=== PATIENT | female | born 1955 | race Caucasian/White ===

== ENCOUNTER 2017-10-26 09:02 | Observation (INO) | payer OTHER ==
--- NOTE | 2017-10-25 08:27 | MH ---
cc: DAMIAN BASSETT M.D. DATE OF ADMISSION: 10/26/2017 PRINCIPAL DIAGNOSIS Right breast cancer. HISTORY OF PRESENT ILLNESS The patient is a 62-year-old female noted to have a density in the lower inner right breast at 5 o'clock 6 cm from the nipple initially noted on a diagnostic mammogram July 11, 2017 at [facility]. Right breast ultrasound confirmed these findings. 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 The patient had a benign right breast biopsy 20 years ago. She subsequently had a breast MRI which demonstrated some other areas of enhancement requiring further evaluation. At that point, the patient opted for bilateral mastectomy with immediate reconstruction and she now presents for the procedure. PAST MEDICAL HISTORY Medical problems include - 1. Hypertension. 2. Peptic ulcer disease. 3. History of deep venous thrombosis in the right calf. PAST SURGICAL HISTORY Prior surgeries included - 1. Bilateral knee replacement in 2004 and 2012. 2. Hysterectomy for endometriosis in 1978. 3. Ulcer surgery in 1989. 4. Surgery on the face, ankle and foot in the past. CURRENT MEDICATIONS 1. Hydrochlorothiazide 25 mg daily. 2. Lisinopril 25 mg daily. 3. Tylenol one-to-two tablets daily. 4. Multivitamin supplement daily. ALLERGIES SHE IS ALLERGIC TO CODEINE WHICH IS AN ADVERSE DRUG REACTION WITH NAUSEA AND VOMITING, AND BACTRIM ANALGON CAUSED SIMILAR SYMPTOMS. REPRODUCTIVE HISTORY G2, P2. Menarche age 13, first child age 18, surgical menopause age 23. She took hormone replacement for approximately six months until she developed a DVT. FAMILY HISTORY Significant for breast cancer in her mother at age 36. REVIEW OF SYSTEMS A 12-point review of systems was significant for gastroesophageal reflux. PHYSICAL EXAMINATION VITAL SIGNS: She is 5'4" and weighs 199 pounds with a BMI of 34.2. Blood pressure was 162/90, temperature 97.9, respirations 18, heart rate 78. HEENT: Unremarkable. NECK: Supple with no adenopathy or thyromegaly. CHEST: Clear. CARDIOVASCULAR: Cardiac exam revealed a normal S1 and S2 with no murmurs, rubs or gallops. BREASTS: Breast exam revealed fibrocystic changes with no palpable masses and there was a healed biopsy site in the lower inner right breast. ABDOMEN: Abdomen exam revealed a right upper quadrant and midline scar with no masses or tenderness. The remainder of her exam was unremarkable. IMPRESSION Clinically the patient has stage 0 disease in the lower inner right breast 6 mm lesion. We initially discussed breast conservation but because of other areas of enhancement by MRI, the patient has opted for bilateral mastectomy with immediate reconstruction. She will also undergo right axillary sentinel lymph node biopsy. MD CHITO Gilbert/MELONIE /11:10 AM /8:22 AM
[~2017-10-26] VITALS: Ht 162.6 cm; Wt 90.0 kg
[~2017-10-26 09:02] MED LIST: ADVI200C9 PO; AUGM500T7 PO; DOXY100T PO; HYDR12.56 PO; HYDR12.57 PO; IBUP200C; LISI-360 PO; LISI10TA3 PO; MULTTAB67 PO; OMEP20TA39 PO; OMEP20TA93 PO; OXYC1TAB63 PO; PERC5TAB12 PO; TAB-TAB PO
[2017-10-26] MEDS ORDERED: ceFAZolin 2 GM PREMIX 50 ML IV SCH (09:30)
[2017-10-26] MEDS ORDERED: ONDANSETRON HCL 4 MG/2 ML VIAL IV PUSH SCH (09:30)
[2017-10-26] MEDS ORDERED: CYMB60CA PO (09:55)
[2017-10-26] MEDS ORDERED: PLAQ200T PO (09:55)
[2017-10-26] MEDS ORDERED: POVIDONE IODINE 5% (ANTISEPSIS KIT) 4 APPLICATIONS EACH NARE PRN (10:00)
[2017-10-26] MEDS ORDERED: METOPROLOL TARTRATE 25 MG TAB PO PRN (10:00)
[2017-10-26] MEDS ORDERED: SODIUM CHLORID 0.9% 500 ML IV PRN (10:00)
[2017-10-26] MEDS ORDERED: CHLORHEXIDINE GLUCONATE 2 % 1 PACK (2 CLOTHS) TOPICAL PRN (10:00)
[2017-10-26] MEDS ORDERED: LACTATED RINGER'S 1000 ML IV PRN (10:00)
[2017-10-26] MEDS ORDERED: HYDROmorphone HCL PF 2 MG/ML VIAL ONE ×3 (10:14→16:43)
[2017-10-26] MEDS ORDERED: SUGAMMADEX SODIUM 200 MG/2 ML VIAL IV PUSH ONE (10:14)
[2017-10-26] MEDS ORDERED: BUPIVACAINE/EPINEPHRINE 0.25% 50 ML VIAL ONE (10:15)
[2017-10-26] MEDS ORDERED: NALOXONE HCL 0.4 MG/ML AMP ONE (10:15)
[2017-10-26] MEDS ORDERED: APREPITANT 40 MG CAP ONE (10:16)
[2017-10-26] MEDS ORDERED: ISOSULFAN BLUE 50 MG/5 ML VIAL SQ ONE (10:16)
[2017-10-26] MEDS ORDERED: SODIUM CHLORIDE 0.9% 20 ML VIAL ONE (10:22)
[2017-10-26] MEDS ORDERED: GENTAMICIN SULFATE 80 MG/2 ML VIAL ONE (13:18)
[2017-10-26] MEDS ORDERED: MIDAZOLAM HCL 2 MG/2 ML VIAL ONE (15:01)
[2017-10-26 15:30] VITALS: PULSE 82
[2017-10-26] MEDS ORDERED: MORPHINE SULFATE 8 MG/ML INJ ONE ×2 (15:32→16:23)
--- NOTE | 2017-10-26 15:34 | PD.OP ---
Operative Report Right breast cancer, patient for bilateral mastectomies and Tissue Manager Reading, Allomax Reconstruction Postoperative Diagnosis: Right breast cancer, patient for bilateral mastectomies and Tissue Manager Reading, Allomax Reconstruction Procedure: 1) Right Breast Areola sparing Mastectomy and Lymph node sampling by Dr. Mcduffie 2) Left Breast Nipple sparing mastectomy - Johana Morales 3) Bilateral Breast reconstructions with Tissue Expanders and Allomax Tissue grafts - Dr. Vaughn Anesthesia: gen Surgeon: Dr. Froy Vaughn Regulatory Scientist(s): rn Resident Surgeon: none Operation and Findings: Patient was marked preoperatively in the holding are in standing position. Bilateral Inframammary incisions were planned. Patient was brought to the OR and anesthetized, Time out completed Prep and drape done Right side was done by Dr. Mcduffie - Areola sparing mastectomy - and LN sampling. To be dictated by her. Left side Nipple sparing mastectomy was planned after confirming with Dr. Mcduffie. Tumescent mixture of saline and Marcaine with epi - 200 cc was used to infiltrate the skin flaps and under the breast tissue. Inframammary incision was made approx 5 mm above the IMF. Breast flaps were elevated up to the base of the nipple and surrounding the areola. Nipple base was and a tissue sample was taken for pathology. A silk suture was placed at the position of the nipple on the breast tissue, Flap elevation was completed to the peripheral outlines of the breast. Breast tissue border was elevated off the chest wall at the lower pole and dissected with cautery while preserving the fascia over the pectoralis muscle. Breast borders were release carefully while controlling the pegger dobby looms vessels with suture ligatures as needed. Breast specimen was marked on the lower pole with a long silk suture - at inferior position. Tissue weight was 604 grams on the Left side. Tissue weight was 534 grams on the Right side when Dr. Mcduffie finished her side. Surgery was continued by myself. Both side pockets were rinsed out with a liter of saline - all loose fat was removed. Hemostasis was completed. Subpectoral pockets were created, lower lateral end of the Pectoralis attachment was released. 10 MM flat SHANON drains were inserted through a separate stab incision on each side. Allomax 8 x 16 cm grafts were hydrated and placed rough side up, sutured along just above the IMF and then curved with small splits at the lower edge to turn it into the lateral axillary line - along the anterior axillary line position Allomax serial # [id number] on the Right, # [id number] on the left side, Allergan 133 MV- 15-T tissue expanders were placed, Right side SN# [id number]. Left side SN# [id number] Expanders were evacuated of all air, placed subpectoral with filling port oriented to the 12 O'clock. Tabs were not used. Allomax free border was tacked to the Pectoralis lateral edge. Few scissor cuts were made on the lower side of the Allomax to allow rounding with the fill and to allow draining of the implant pocket. TE were filled with sterile saline using a three way closed system - 400 cc final fill on each side. SHANON drains were placed along the axilla and in subcutaneous pocket. Bilateral inframammary incisions and the Right areola defect were suture closed with 3/0 Vicryls internal sutures only. Dermabond was used for the Right nipple skin. All areas were cleaned and dressed, Xeroform on incisions and soft dressing, no Bra. Patient remained fully stable, no complications. EBL less than 10 cc on the left side, Right side to be dictated by Dr. Mcduffie. Ryan Vaughn MD Oct 26, 2017 15:34
[2017-10-26] MEDS ORDERED: DO NOT ADM ANY ANTICOAGULANT DRUGS PRN (15:35)
[2017-10-26] MEDS: PANTOPRAZOLE SOD 20 MG DELAYED RELEASE TAB PO SCH (16:00)
--- NOTE | 2017-10-26 16:55 | MP ---
cc: ISABELLA BASSETT DATE OF SURGERY: 10/26/2017 PRINCIPAL DIAGNOSIS Ductal carcinoma in situ of the right breast. PROCEDURE PERFORMED Bilateral mastectomy with right axillary sentinel lymph node biopsy and bilateral tissue runway model and Allomax reconstruction, as well as left nipple sparing procedure. SURGEON Isabella Bassett MD. Ryan Vaughn MD. ANESTHESIA General endotracheal INDICATION The patient is a 62-year-old female who was noted to have ductal carcinoma in situ of the right breast. She has opted for bilateral mastectomy with immediate reconstruction and now presents for the procedure. FINDINGS AT THE TIME OF SURGERY No gross evidence of residual disease was identified in the right breast. Two sentinel lymph nodes were identified. Number 1 had a count of 1310 and was 2+ blue. Number 2 was 1+ blue with no count. Touch prep was not performed. PROCEDURE PERFORMED After informed consent was obtained and site verification was performed, the patient was brought to the radiology suite where she underwent peritumoral radionuclide injection of the right breast. She was then brought to the major operating room where she underwent general endotracheal anesthesia. She was given a single dose of IV Ancef and sequential compression hose were placed. Three cc of half-strength Lymphazurin were injected in the subareolar right breast and a 5-minute massage was performed. Both breasts were then prepped and draped in sterile fashion as well as the right arm. An inframammary crease incision was anesthetized and 200 cc of tumescent solution mixed with 15 cc of 0.25% Marcaine with epinephrine were then infiltrated circumferentially around the breast in the plane between the anterior breast fascia and subcutaneous fat. The inframammary crease was then sharply incised and the plane between the anterior breast fascia and subcutaneous fat was sharply dissected medially and laterally to the level of the nipple. Electrocautery was then used to dissect the breast tissue off the underlying pectoralis muscle up to the level of the clavicle and medially to the sternum. Further sharp dissection was performed in the region of the nipple and the nipple was circumferentially excised and included with the breast specimen using sharp dissection. Further sharp and electrocautery dissection was performed to develop the anterior plane superiorly up to the level of the clavicle between the anterior breast fascia and subcutaneous fat medially and laterally. The breast was then amputated in the axilla using electrocautery and oriented with one short suture superiorly, one long suture medially, and the nipple was anterior. Good hemostasis was noted on the chest wall and the breast specimen was weighed and sent for permanent pathologic evaluation. A separate incision was created at the inferior aspect of the right axillary hairline and electrocautery was used to divide the clavipectoral fascia. The level I axilla was immediately entered into mid level I. Blue lymph nodes were identified and circumferentially dissected free from surrounding structures with the counts as noted. Both nodes were sent as sentinel nodes and good hemostasis was noted in the axilla. Adjacent axillary tissue was also removed and sent as a permanent specimen. The axillary wound was closed using interrupted 3-0 Vicryl subcutaneous sutures and a 4-0 Monocryl subcuticular suture. Steri-Strips were applied. Reconstruction of the right breast was then performed by Dr. Vaughn and this will be recorded on a separate dictation. MD CHITO Gilbert/BITA /1:57 PM /4:11 PM
[2017-10-26] MEDS ORDERED: oxyCODONE/ACETAMINOPHEN 7.5 MG/325 MG TAB PO PRN (17:00)
[2017-10-26] MEDS: LACTATED RINGER'S 1000 ML INJ 1,000 ML IV SCH (17:00)
[2017-10-26] MEDS ORDERED: HYDROmorphone HCL PF 1 MG/ML VIAL IV PUSH PRN (17:00)
[2017-10-26 20:00] VITALS: BP 127/60; PULSE 93; RESP 18; TEMP 96.4; O2SAT 94
[2017-10-26] MEDS: ceFAZolin 2 GM PREMIX 50 ML IV SCH (20:25)
[2017-10-26] MEDS: HYDROXYCHLOROQUINE SULFATE 200 MG TAB PO SCH (20:25)
[2017-10-27] VITALS: BP 108/61; PULSE 82; RESP 12; TEMP 97.7; O2SAT 99
[2017-10-27] MEDS: HYDROmorphone HCL PF 2 MG/ML VIAL IV PUSH PRN ×2 (00:28→04:21)
[2017-10-27] MEDS: PROMETHAZINE HCL 25 MG TAB PO PRN ×2 (01:35→15:57)
[2017-10-27] MEDS: ceFAZolin 2 GM PREMIX 50 ML IV SCH ×2 (03:12→12:05)
[2017-10-27] MEDS: LACTATED RINGER'S 1000 ML INJ 1,000 ML IV SCH ×2 (03:16→21:43)
[2017-10-27 04:00] VITALS: BP 118/59; PULSE 77; RESP 14; TEMP 98; O2SAT 99
[2017-10-27] MEDS ORDERED: NALOXONE HCL 0.4 MG/ML AMP IV PUSH PRN (06:45)
[2017-10-27] MEDS: MORPHINE SULFATE 30 MG/30 ML PCA IV SCH ×2 (06:53→22:36)
[2017-10-27 07:50] VITALS: BP 133/61; PULSE 65; RESP 12; TEMP 96.9; O2SAT 99
[2017-10-27] MEDS: HYDROXYCHLOROQUINE SULFATE 200 MG TAB PO SCH ×2 (08:07→21:40)
[2017-10-27] MEDS: HYDROCHLOROTHIAZIDE 12.5 MG CAP PO SCH (08:12)
[2017-10-27] MEDS: PANTOPRAZOLE SOD 20 MG DELAYED RELEASE TAB PO SCH (08:13)
[2017-10-27] MEDS: MULTIVITAMIN TAB PO SCH (08:13)
[2017-10-27] MEDS: LISINOPRIL 10 MG TAB PO SCH (08:13)
[2017-10-27] MEDS: DULoxetine HCl DR 30 MG CAP PO SCH (08:15)
--- NOTE | 2017-10-27 09:12 | PD.PLAS.PN ---
Subjective Remarks Patient doing well pot op. Pain ++ Some relief from meds but it is more when moving a little in the bed Vitals ok, Afebrile No nausea pr vomiting.Breast flaps good color and warm normal Incision lines clean SHANON approx 30 cc in each bulb. OK to go OOB with help. She wants to stay over one more night, afraid to go home. Will let Dr. Mcduffie know. Vital Signs Date Time Temp Pulse Resp B/P (MAP) Pulse Ox O2 Delivery O2 Flow Rate FiO2 10/27/17 06:53 24 10/27/17 04:00 98.0 77 14 118/59 (78) 99 10/27/17 00:00 97.7 82 12 108/61 (77) 99 10/26/17 20:00 96.4 93 18 127/60 (82) 94 10/26/17 18:25 98.2 81 16 143/56 (85) 99 10/26/17 15:45 79 14 128/57 (80) 99 Nasal Cannula 2 10/26/17 15:30 98.2 78 14 140/89 (106) 99 Nasal Cannula 2 10/26/17 15:30 82 10/26/17 09:30 98.2 75 18 139/95 (110) 95 I/O 10/26/17 10/26/17 10/26/17 10/27/17 10/27/17 10/27/17 07:00 15:00 23:00 07:00 15:00 23:00 Intake Total 2036 ml 1791 ml Output Total 390 ml 700 ml Balance 1646 ml 1091 ml Intake Oral 480 ml IV Total 2036 ml 1311 ml Output Urine Total 250 ml 500 ml Drainage Total 90 ml 200 ml Estimated Blood Loss 50 ml # Bowel Movements 0 Ryan Vaughn MD Oct 27, 2017 09:12
[2017-10-27] MEDS ORDERED: HYDR-3583 PO (09:14)
[2017-10-27 11:00] VITALS: BP 122/61; PULSE 79; RESP 18; TEMP 98.5; O2SAT 95
[2017-10-27] MEDS: PCA - TOTAL MG MORPHINE DELIVERED PER SHIFT SCH ×2 (14:30→22:00)
--- NOTE | 2017-10-27 15:31 | HHI.PR ---
Subjective Subjective Notes Still some nausea and issues with pain control. Currently has no antiemetic ordered. Objective Vitals/I&O Vital Signs Date Time Temp Pulse Resp B/P (MAP) Pulse Ox O2 Delivery O2 Flow Rate FiO2 10/27/17 14:30 16 10/27/17 11:00 98.5 79 122/61 (81) 95 10/26/17 15:45 Nasal Cannula 2 Intake 500cc Urine output 750cc. Left chest wall drain 155cc, right chest wall drain 135cc. Cardiovascular: Regular Lungs: Clear Narrative Exam Bilateral chest wall flaps clean with no ischemia. A/P Problem List: (1) Ductal carcinoma in situ (DCIS) of right breast ICD Codes: D05.11 - Intraductal carcinoma in situ of right breast Status: Acute Assessment and Plan Currently on GEOLOGICAL AIDE for pain control. Will discontinue hendrix to encourage ambulation. Add antiemetic and muscle relaxant. Isabella Mcduffie MD Oct 27, 2017 15:31
[2017-10-27] MEDS: CYCLOBENZAPRINE HCL 10 MG TAB PO SCH ×2 (15:57→21:40)
[2017-10-27 16:00] VITALS: BP 160/66; PULSE 74; RESP 18; TEMP 97.9; O2SAT 94
[2017-10-27 20:01] VITALS: BP 131/79; PULSE 77; RESP 19; TEMP 98.9; O2SAT 99
[2017-10-28] VITALS: BP 128/72; PULSE 75; RESP 18; TEMP 97.7; O2SAT 96
[2017-10-28] MEDS: PROMETHAZINE HCL 25 MG TAB PO PRN (04:51)
[2017-10-28] MEDS: CYCLOBENZAPRINE HCL 10 MG TAB PO SCH ×3 (06:00→21:08)
[2017-10-28] MEDS: PCA - TOTAL MG MORPHINE DELIVERED PER SHIFT SCH (06:00)
[2017-10-28 07:58] VITALS: BP 160/71; PULSE 81; RESP 20; TEMP 98.7; O2SAT 92
[2017-10-28] MEDS: MULTIVITAMIN TAB PO SCH (08:22)
[2017-10-28] MEDS: HYDROCHLOROTHIAZIDE 12.5 MG CAP PO SCH (08:22)
[2017-10-28] MEDS: HYDROXYCHLOROQUINE SULFATE 200 MG TAB PO SCH ×2 (08:22→21:08)
[2017-10-28] MEDS: DULoxetine HCl DR 30 MG CAP PO SCH (08:23)
[2017-10-28] MEDS: LISINOPRIL 10 MG TAB PO SCH (08:23)
[2017-10-28] MEDS: PANTOPRAZOLE SOD 20 MG DELAYED RELEASE TAB PO SCH (08:23)
--- NOTE | 2017-10-28 09:57 | HHI.PR ---
Subjective Subjective Notes Minimal ambulation. Nausea improved and pain improved but still relying on CUPBOARD BUILDER. Objective Vitals/I&O Vital Signs Date Time Temp Pulse Resp B/P (MAP) Pulse Ox O2 Delivery O2 Flow Rate FiO2 10/28/17 07:58 98.7 81 20 160/71 (100) 92 10/26/17 15:45 Nasal Cannula 2 Drain output 90cc left, 70cc right. Cardiovascular: Regular Lungs: Clear Narrative Exam Bilateral chest wall flaps clean with no ischemia. Wound Wound : Wound Location: Chest Appearance: Clean & Dry Dressing: Dry (Flaps viable. No infection or seroma.) A/P Problem List: (1) Ductal carcinoma in situ (DCIS) of right breast ICD Codes: D05.11 - Intraductal carcinoma in situ of right breast Status: Acute Assessment and Plan Currently on CUPBOARD BUILDER. Will stop CUPBOARD BUILDER and encourage po pain medication. Anticipate D/ C later today. Isabella Mcduffie MD Oct 28, 2017 09:57
--- NOTE | 2017-10-28 10:04 | HHI.DS ---
Discharge Summary Admission Date Oct 26, 2017 at 18:20 Admitting Diagnosis (1) Ductal carcinoma in situ (DCIS) of right breast ICD Codes: D05.11 - Intraductal carcinoma in situ of right breast Status: Acute Procedures Bilateral mastectomy with immediate tissue stock clipper reconstruction and right axillary sentinel lymph node biopsy. Brief History Patient elected to undergo bilateral mastectomy for DCIS right breast. PE at Discharge Bilateral chest wall flaps clean with no ischemia. Hospital Course Patient required CEMENT BOAT AND BARGE LOADER for pain control POD 1 and subsequently transitioned to oral agents. Discharged POD 2. Pt Condition on Discharge: Good Discharge Disposition: Discharge Home Discharge Instructions Speech Therapy-Diet Recommends: Regular Activities you can perform: Shower Only-No Bath Activities to Avoid: Strenuous Activity, Driving Other Activity Instructions: Record drain output daily. Routine drain care. Isabella Mcduffie MD Oct 28, 2017 10:04
[2017-10-28] MEDS: LACTATED RINGER'S 1000 ML INJ 1,000 ML IV SCH ×2 (11:51→21:38)
[2017-10-28 12:00] VITALS: BP 143/65; PULSE 85; RESP 20; TEMP 98.9; O2SAT 93
[2017-10-28] MEDS: MORPHINE SULFATE 4 MG/ML INJ IV PUSH PRN ×2 (14:38→21:12)
[2017-10-28 16:00] VITALS: BP 135/61; PULSE 87; RESP 20; TEMP 98.9; O2SAT 93
[2017-10-28 21:06] VITALS: BP 136/63; PULSE 87; RESP 18; TEMP 98.7; O2SAT 95
[2017-10-28] MEDS: oxyCODONE/ACETAMINOPHEN 7.5 MG/325 MG TAB PO PRN (21:43)
[2017-10-29 01:22] VITALS: BP 128/61; PULSE 76; RESP 16; TEMP 98.6; O2SAT 96
[2017-10-29] MEDS: MORPHINE SULFATE 4 MG/ML INJ IV PUSH PRN (05:14)
[2017-10-29] MEDS: CYCLOBENZAPRINE HCL 10 MG TAB PO SCH ×2 (05:14→14:08)
[2017-10-29] MEDS: HYDROXYCHLOROQUINE SULFATE 200 MG TAB PO SCH (09:45)
[2017-10-29] MEDS: DULoxetine HCl DR 30 MG CAP PO SCH (09:45)
[2017-10-29] MEDS: HYDROCHLOROTHIAZIDE 12.5 MG CAP PO SCH (09:45)
[2017-10-29] MEDS: PANTOPRAZOLE SOD 20 MG DELAYED RELEASE TAB PO SCH (09:46)
[2017-10-29] MEDS: MULTIVITAMIN TAB PO SCH (09:46)
[2017-10-29] MEDS: LISINOPRIL 10 MG TAB PO SCH (09:46)
[2017-10-29] MEDS: oxyCODONE/ACETAMINOPHEN 7.5 MG/325 MG TAB PO PRN ×2 (09:50→14:06)
--- NOTE | 2017-10-29 10:39 | HHI.PR ---
Subjective Subjective Notes Pain much improved. Tolerating diet. Objective Vitals/I&O Vital Signs Date Time Temp Pulse Resp B/P (MAP) Pulse Ox O2 Delivery O2 Flow Rate FiO2 10/29/17 05:06 10/29/17 01:22 98.6 76 16 96 10/26/17 15:45 Nasal Cannula 2 Cardiovascular: Regular Narrative Exam Bilateral chest wall flaps clean with no ischemia. No seroma or infection. A/P Problem List: (1) Ductal carcinoma in situ (DCIS) of right breast ICD Codes: D05.11 - Intraductal carcinoma in situ of right breast Status: Acute Assessment and Plan Doing well. Pain controlled with flexeril and oxycodone. Ready for discharge. Isabella Mcduffie MD Oct 29, 2017 10:39
[2017-10-29] MEDS ORDERED: DEXAMETHASONE SOD PHOS 4 MG/ML VIAL IV ONE (12:00)
[2017-10-29] MEDS ORDERED: ONDANSETRON HCL 4 MG/2 ML VIAL IV PUSH ONE (12:00)
[2017-10-29] MEDS ORDERED: LIDOCAINE HCL 1% PF 5 ML SYRINGE OTHER ONE (12:00)
[2017-10-29] MEDS ORDERED: PROPOFOL 200 MG/20 ML AMP IV ONE (12:00)
[2017-10-29] MEDS ORDERED: PHENYLEPHRINE HCL 10 MG/ML VIAL IV ONE (12:00)
[2017-10-29] MEDS ORDERED: ROCURONIUM INJ 50 MG/5 ML SYRINGE IV PUSH ONE (12:00)
[2017-10-29] MEDS ORDERED: PHENYLEPH/NS 1000 MCG/10 ML SYR IV ONE (12:00)
[2017-10-29] MEDS ORDERED: LACTATED RINGER'S 1000 ML INJ 1,000 ML IV ONE (12:00)
[2017-10-29 15:06] VITALS: RESP 18
--- NOTE | 2017-11-01 20:36 | MD ---
cc: DAMIAN BASSETT ADMISSION DATE: 10/26/2017 DISCHARGE DATE: 10/29/2017 PRINCIPAL DIAGNOSIS Ductal carcinoma in situ of the right breast. PROCEDURE PERFORMED DURING ADMISSION Bilateral skin sparing mastectomy with left nipple sparing mastectomy, right axillary sentinel lymph node biopsy, and immediate tissue content publisher reconstruction on 10/26/2017 ATTENDING PHYSICIAN John Bassett MD HISTORY OF PRESENT ILLNESS The patient is a 62-year-old female noted to have a newly diagnosed ductal carcinoma in situ of the right breast which was noted on imaging at the end of June at [facility]. Ultrasound-guided core biopsy confirmed intermediate nuclear grade DCIS. Breast MRI demonstrated other areas of enhancement and the patient opted for bilateral mastectomy with reconstruction. MEDICAL HISTORY 1. Hypertension 2. Peptic ulcer disease, 3. History of a DVT in the right calf. PAST SURGERIES 1. Bilateral knee replacement 2004 and 2012, 2. Hysterectomy for endometriosis in 1978, 3. Ulcer surgery in 1989. MEDICATIONS Current, 1. Hydrochlorothiazide 25 mg daily. 2. Lisinopril 25 mg daily. 3. Tylenol. 4. Multivitamins. ALLERGIES CODEINE associated with nausea and vomiting BACTRIM causes nausea and vomiting. FAMILY HISTORY Significant for breast cancer in her mother at age 36. The patient does have BRCA results pending. A 12-point review of systems was significant for reflux. PHYSICAL EXAMINATION GENERAL/VITAL SIGNS: She is alert and oriented x3 and in no acute distress. She is 5.4 with 199 pounds with a BMI of 34. Blood pressure 162/90, temperature 98, respirations 18, heart rate 78. HEENT/NECK/CHEST: Unremarkable. BREASTS: Exam revealed fibrocystic changes, no palpable mass. There was a healed biopsy in the lower inner right breast. ABDOMEN: Significant for right upper quadrant midline scars with no masses or tenderness. HOSPITAL COURSE The patient underwent bilateral mastectomy with immediate tissue content publisher reconstruction and right axillary sentinel lymph node biopsy on October 26. She required a prolonged hospital stay secondary to moderate nausea and difficulty with pain control. By the third postoperative day, she was tolerating oral analgesics and muscle relaxants without difficulty and was discharged home. She is scheduled for follow up with both Dr. Vaughn and Dr. Bassett next week. MEDICATIONS All of her chronic medications as well as 1. Hydrocodone p.r.n. 2. Flexeril 10 mg q.8 h p.r.n. for muscle spasm. MD SOFIA Gilbert /10:31 AM /8:13 PM
== END 2017-10-29 16:16 | disposition home or self-care (01) ==
LOC: PHSDC 09:02 → PH3B 18:20
PROVIDERS: ADMIT Surgery; ATTEND Surgery
DX: D05.11 Intraductal carcinoma in situ of right breast (principal); R11.0 Nausea; I10 Essential (primary) hypertension; K21.9 Gastro-esophageal reflux disease without esophagitis; Z86.718 Personal history of other venous thrombosis and embolism; Z87.11 Personal history of peptic ulcer disease; Z96.653 Presence of artificial knee joint, bilateral; Z90.710 Acquired absence of both cervix and uterus; Z79.899 Other long term (current) drug therapy
CPT/HCPCS: 00400; 00402; 01610; 15777; 19304; 19357; 38525; 38792; 88305; 88307; 96361; 96365; 96366; 96375; 96376; C1789; G0378; J0690; J1100; J1170; J1580; J2250; J2270; J2370; J2405; J3010; J7120; Q0169; Q4100; J2310; J8501; Q9968

== ENCOUNTER 2018-02-12 23:53 | Emergency (ER) | payer OTHER ==
[~2018-02-12] VITALS: Ht 162.6 cm; Wt 84.5 kg
[~2018-02-12 23:53] MED LIST changes: -ADVI200C9 PO; -AUGM500T7 PO; +CYMB60CA PO; -DOXY100T PO; +HYDR-3583 PO; -HYDR12.56 PO; -LISI-360 PO; -OMEP20TA39 PO; -OXYC1TAB63 PO; -PERC5TAB12 PO; +PLAQ200T PO; -TAB-TAB PO
[2018-02-12] MEDS ORDERED: IOHEXOL 350 MG/ML 10 ML VIAL (for RAD DIAG) IVCONTRAST ONE (23:54)
[2018-02-13 00:01] VITALS: BP 187/89; PULSE 73; RESP 20; TEMP 98.1; O2SAT 98
[2018-02-13 01:15] VITALS: RESP 18; O2SAT 98
--- NOTE | 2018-02-13 01:17 | RADRPT ---
EXAM DATE: 02/13/2018 1:11 AM EDT AGE/SEX: 62 years / Female INDICATIONS: Nausea, vomiting, and body aches. CLINICAL DATA: This is the patient's initial encounter. Patient reports that signs and symptoms have been present for 1 day and indicates a pain score of 0/10. MEDICAL/SURGICAL HISTORY: Asthma. Hiatal hernia. Lupus. GERD Bleeding ulcers Rt breast cance r Skin cancer Mastectomy, bilateral. Tonsillectomy. Total knee replacement, left. Total knee repl acement, right COMPARISON: No prior [place] exams available for comparison. FINDINGS: A single AP view of the chest demonstrates the lungs to be symmetrically aerated without evidence of mass, infiltrate or effusion. The cardiomediastinal contours are unremarkable. Osseous structures a re intact. Left shoulder prosthesis. Evidence of previous anterior cervical fusion of the lower cerv ical spine. CONCLUSION: No acute intrathoracic disease. Electronically signed by: Dez Mcfarland MD 02/13/2018 1:16 AM EDT
[2018-02-13 01:22] LABS: AUTOMATED NEUTROPHIL # 5.8 TH/MM3 (1.8-7.7); BASOPHIL # 0.2 TH/MM3 (0-0.2); BASOPHIL % 1.9 % (0.0-2.0); EOSINOPHIL # 0.2 TH/MM3 (0-0.4); EOSINOPHIL % 2.5 % (0.0-4.0); HEMATOCRIT 38.1 % (35.0-46.0); HEMOGLOBIN 12.7 GM/DL (11.6-15.3); LYMPH % 19.1 % (9.0-44.0); LYMPHOCYTE # 1.7 TH/MM3 (1.0-4.8); MEAN CELL VOLUME 86.7 FL (80.0-100.0); MEAN CORPUSCULAR HEMOGLOBIN 28.8 PG (27.0-34.0); MEAN CORPUSCULAR HGB CONC 33.3 % (32.0-36.0); MEAN PLATELET VOLUME 8.3 FL (7.0-11.0); MONO % 9.5 % (0.0-8.0); MONOCYTE # 0.8 TH/MM3 (0-0.9); PLATELET COUNT 340 TH/MM3 (150-450); RED BLOOD COUNT 4.39 MIL/MM3 (4.00-5.30); RED CELL DISTRIBUTION WIDTH 15.6 % (11.6-17.2); WHITE BLOOD COUNT 8.7 TH/MM3 (4.0-11.0)
--- NOTE | 2018-02-13 01:25 | RADRPT ---
EXAM DATE: 02/13/2018 1:17 AM EDT AGE/SEX: 62 years / Female INDICATIONS: Headaches with vomiting. CLINICAL DATA: This is the patient's initial encounter. Patient reports that signs and symptoms have been present for 4 - 6 days and indicates a pain score of 10/10. MEDICAL/SURGICAL HISTORY: Cardiovascular disease. Hypertension. Gastroesophageal reflux disease. Breast cancer DVT Cholecystectomy. Total knee replacement, left. Total knee replacement, right. Partial gastric RADIATION DOSE: 56.35 CTDI (mGy) COMPARISON: No prior [place] exams available for comparison. TECHNIQUE: CT of the head without contrast. Using automated exposure control and adjustment of the mA and/or kV according to patient size, radiation dose was kept as low as reasonably achievable to ob tain optimal diagnostic quality images. FINDINGS: Cerebrum: The ventricles are normal for age. No evidence of midline shift, mass lesion, hemorrhage or acute infarction. No extraaxial fluid collections are seen. Posterior Fossa: The cerebellum and brainstem are intact. The 4th ventricle is midline. The cerebe llopontine angle is unremarkable. Extracranial: The visualized portion of the orbits is intact. Skull: The calvaria is intact. No evidence of skull fracture. CONCLUSION: 1. Unremarkable CT scan of the brain. Electronically signed by: Dez Mcfarland MD 02/13/2018 1:24 AM EDT
--- NOTE | 2018-02-13 01:29 | PD ---
HPI Chief Complaint: Headache Time Seen by Provider: 00:17 Travel History International Travel<30 days: No Contact w/Intl Traveler<30days: No Traveled to known affect area: No History of Present Illness HPI The patient is a 62 year old female who presents to the [facility] emergency department with a history of reportedly not feeling well for the past week. She reports that it began with low back pain. She initially thought she may have strained her back, however then over the last 3 days she developed a headache that is generalized throughout her head, pain in her back between her shoulder blades, and pain surrounding her left breast tissue gas shovel operator. She reports that in October she had bilateral mastectomies done with tissue expanders placed in preparation for reconstructive breast surgery. She reports that Dr. Vaughn did the surgery. The patient subsequently at the end of November/ beginning of December she developed sepsis related to an MRSA infection involving the right tissue gas shovel operator. She reports that this was removed. The patient reports that she went to the emergency department in [place] 2 days ago and was diagnosed with a possible peptic ulcer although she denies having any imaging done. She reports that she continues to have worsening symptoms, that she came to this emergency department for evaluation and treatment. On review of systems otherwise, the patient denies having any known fevers, cough or congestion, neck pain or stiffness, chest pain, abdominal pain, diarrhea, urinary symptoms, or neurologic symptoms. The patient reports that she has had vomiting 4-5 times today. She reports that at the onset of symptoms she had vomiting at least 20 times. The patient reports that she has had headaches in the past that were similar to this. In fact she was diagnosed with her last infection at the end of November she underwent lumbar puncture because of the severe headache similar to this. She denies any thunderclap quality to this headache. [facility] Past Medical History Narrative Medical The patient's past medical history is significant for hypertension, history of peptic ulcer disease, history of DVT in the right calf, history of bilateral mastectomy due to breast cancer. The patient has a history of skin cancer. Hx Anticoagulant Therapy: No Arthritis: Yes Asthma: No Blood Disorders: No Anxiety: Yes Depression: Yes Heart Rhythm Problems: No Cancer: Yes (SKIN CANCER, RIGHT BREAST CANCER) Cardiovascular Problems: Yes (HTN) High Cholesterol: No Chemotherapy: No Chest Pain: No Congestive Heart Failure: No COPD: No Cerebrovascular Accident: No Diabetes: No Endocrine: No Gastrointestinal Disorders: Yes (HX BLEEDING ULCERS, PEPTIC ULCER DISEASE, GERD ) GERD: No Genitourinary: No Headaches: Yes Hepatitis: No Hiatal Hernia: Yes Hypertension: Yes Immune Disorder: Yes (LUPUS) Kidney Stones: No Medical other: Yes (HX DVT RIGHT CALF, HERIBERTO PULMONARY EMBOLI) Musculoskeletal: Yes (BILAT KNEE SURGERY, L SHOULDER SURGERY, ARTHRITIS, CERVICAL SPINAL FUSION) Neurologic: No Psychiatric: Yes (DEPRESSION) Reproductive: No Respiratory: Yes (asthma) Myocardial Infarction: No Renal Failure: No Sleep Apnea: No Thyroid Disease: No Ulcer: No Tetanus Vaccination: < 5 Years Past Surgical History Narrative Surgical The patient's past surgical history is significant for bilateral mastectomy with tissue standard placement, bilateral knee surgery, left shoulder surgery, cervical spine fusion, jaw surgery, sinus surgery, cholecystectomy Abdominal Surgery: Yes (CHOLY, PARTIAL RESECTION STOMACH) AICD: No Appendectomy: No Body Medical Devices: RIGHT ANKLE ,LEFT JAW ,ORBIT AND SINUS, LEFT SHOULDER HARDWARE Cardiac Surgery: No Cholecystectomy: Yes Ear Surgery: No Endocrine Surgery: No Eye Surgery: No Genitourinary Surgery: No Gynecologic Surgery: Yes (HYSTERECTOMY, OVARIAN CYST REMOVAL ) Hysterectomy: Yes Joint Replacement: Yes (HERIBERTO KNEES) Mastectomy: Yes (Dual. gas shovel operator removed on R. ) Neurologic Surgery: No Oral Surgery: Yes (TONSILLECTOMY) Pacemaker: No Thoracic Surgery: Yes (RIGHT LUMPECTOMY FOR BENIGN TUMOR) Tonsillectomy: Yes Other Surgery: Yes (STOMACH/JAW/LEFT EYE) Social History Alcohol Use: No Tobacco Use: No Substance Use: No Allergies-Medications (Allergen,Severity, Reaction): Coded Allergies: codeine (Unverified Allergy, Severe, Hives, 02/13/18) diclofenac (Unverified Allergy, Severe, HIVES TO MECLOMEN,NALFON,TOLECTIN , 02/13/18) etodolac (Unverified Allergy, Severe, HIVES TO MECLOMEN,NALFON,TOLECTIN, ) fenoprofen (Verified Allergy, Severe, Hives, 02/13/18) flurbiprofen (Unverified Allergy, Severe, HIVES TO MECLOMEN,NALFON, TOLECTIN, 02/13/18) ibuprofen (Unverified Allergy, Severe, HIVES TO MECLOMEN,NALFON,TOLECTIN, 02/13/18) indomethacin (Unverified Allergy, Severe, HIVES TO MECLOMEN,NALFON, TOLECTIN, 02/13/18) ketoprofen (Unverified Allergy, Severe, HIVES TO MECLOMEN,NALFON,TOLECTIN , 02/13/18) ketorolac (Unverified Allergy, Severe, HIVES TO MECLOMEN,NALFON,TOLECTIN, 02/13/18) meclofenamic acid (Verified Allergy, Severe, Hives, 02/13/18) naproxen (Unverified Allergy, Severe, HIVES TO MECLOMEN,NALFON,TOLECTIN, ) oxaprozin (Unverified Allergy, Severe, HIVES TO MECLOMEN,NALFON,TOLECTIN, 02/13/18) sulfamethoxazole (Verified Allergy, Severe, Nausea/Vomiting, 02/13/18) trimethoprim (Verified Allergy, Severe, Nausea/Vomiting, 02/13/18) milk (Unverified Adverse Reaction, Intermediate, Diarrhea, 02/13/18) STOMACH PAIN Reported Meds & Prescriptions Reported Meds & Active Scripts Active Phenergan (Promethazine HCl) 25 Mg Tablet 25 Mg PO Q8HR PRN Keflex (Cephalexin) 500 Mg Capsule 500 Mg PO Q8H Hydrocodone-Acetaminophen 5-325 mg Tab 1 Tab PO Q6H PRN Hydrocodone-Acetaminophen 10-325 mg Tab 1 Tab PO Q4H PRN [address] (Duloxetine HCl) 60 Mg Capdr 90 Mg PO DAILY Plaquenil (Hydroxychloroquine Sulfate) 200 Mg Tab 200 Mg PO BID Take with food Omeprazole 20 Mg Tab 20 Mg PO DAILY Multiple Vitamin 1 Tab 1 Tab PO DAILY Hydrochlorothiazide 12.5 Mg Cap 12.5 Mg PO DAILY Lisinopril 10 Mg Tab 10 Mg PO DAILY Ibuprofen 200 Mg Cap 800 Mg BID Review of Systems Except as stated in HPI: all other systems reviewed are Neg General / Constitutional: No: Fever Eyes: No: Visual changes HENT: Positive: Headaches, No: Rhinorrhea, Congestion, Neck Stiffness, Neck Pain Cardiovascular: Positive: Chest Pain or Discomfort, No: Dyspnea on exertion Respiratory: No: Shortness of Breath Gastrointestinal: Positive: Nausea, Vomiting, No: Diarrhea, Abdominal Pain, Indigestion, Loss of Appetite Genitourinary: No: Dysuria Musculoskeletal: Positive: Myalgias, No: Pain Skin: No Rash Neurologic: No: Weakness Psychiatric: No: Depression Endocrine: No: Polydipsia Hematologic/Lymphatic: No: Easy Bruising Physical Exam Narrative General: The patient is a well-developed well-nourished female in no acute distress. Head and Neck exam: Head is normocephalic atraumatic. Eyes: EOMI, pupils are equal round and reactive to light. Nose: Midline septum with pink mucous membranes Mouth: Dentition unremarkable. Moist mucus membranes. Posterior oropharynx is not erythematous. No tonsillar hypertrophy. Uvula midline. Airway patent. Neck: No palpable lymphadenopathy. No nuchal rigidity. No thyromegaly. Cardiovascular: Regular rate and rhythm without murmurs, gallops, or rubs. No pulse deficit to the extremities on simultaneous auscultation and palpation of her radial artery. Lungs: Clear to auscultation bilaterally. No wheezes, rhonchi, or rales. Abdomen: Soft, without tenderness to palpation in all 4 quadrants of the abdomen. No guarding, rebound, or rigidity. Normal bowel sounds are audible. No tenderness on palpation of McBurney's point. Negative Raman sign. Extremities: No clubbing, cyanosis, or edema. 2+ pulses in all 4 extremities. No calf tenderness on palpation. Back: No spinous process tenderness to palpation. No step-off or crepitus. No erythema or ecchymosis. The patient reports tenderness on palpation overlying the left CVA area. No tenderness on the right. Neurologic Exam: Grossly nonfocal. Skin Exam: No rash noted. Intact skin that is warm and dry. Data Data Last Documented VS Vital Signs Date Time Temp Pulse Resp B/P (MAP) Pulse Ox O2 Delivery O2 Flow Rate FiO2 02/13/18 06:01 77 18 167/77 (107) 98 Room Air 02/13/18 00:01 98.1 Orders Orders Electrocardiogram (02/13/18 00:32) Complete Blood Count With Diff (02/13/18 00:32) Comprehensive Metabolic Panel (02/13/18 00:32) Creatine Kinase (Cpk) (02/13/18 00:32) Ckmb (Isoenzyme) Profile (02/13/18 00:32) Troponin I (02/13/18 00:32) Prothrombin Time / Inr (Pt) (02/13/18 00:32) Act Partial Throm Time (Ptt) (02/13/18 00:32) Lipase (02/13/18 00:32) Urinalysis - C+S If Indicated (02/13/18 00:32) Magnesium (Mg) (02/13/18 00:32) Chest, Single Ap (02/13/18 00:32) Ct Brain W/O Iv Contrast(Rout) (02/13/18 00:32) Iv Access Insert/Monitor (02/13/18 00:32) Ecg Monitoring (02/13/18 00:32) Oximetry (02/13/18 00:32) Morphine Inj (Morphine Inj) (02/13/18 01:45) Prochlorperazine Inj (Compazine Inj) (02/13/18 01:45) Sodium Chlor 0.9% 1000 Ml Inj (Ns 1000 M (02/13/18 01:45) Sodium Chlor 0.9% 1000 Ml Inj (Ns 1000 M (02/13/18 02:15) Ct Pulmonary Angiogram (02/13/18 02:34) Morphine Inj (Morphine Inj) (02/13/18 03:15) Diphenhydramine Inj (Benadryl Inj) (02/13/18 03:15) Urine Culture (02/13/18 04:00) Iohexol 350 Inj (Omnipaque 350 Inj) (02/12/18 23:54) Ceftriaxone Inj (Rocephin Inj) (02/13/18 05:00) Labs Laboratory Tests Test 02/13/18 01:10 02/13/18 04:00 White Blood Count 8.7 TH/MM3 Red Blood Count 4.39 MIL/MM3 Hemoglobin 12.7 GM/DL Hematocrit 38.1 % Mean Corpuscular Volume 86.7 FL Mean Corpuscular Hemoglobin 28.8 PG Mean Corpuscular Hemoglobin Concent 33.3 % Red Cell Distribution Width 15.6 % Platelet Count 340 TH/MM3 Mean Platelet Volume 8.3 FL Neutrophils (%) (Auto) 67.0 % Lymphocytes (%) (Auto) 19.1 % Monocytes (%) (Auto) 9.5 % Eosinophils (%) (Auto) 2.5 % Basophils (%) (Auto) 1.9 % Neutrophils # (Auto) 5.8 TH/MM3 Lymphocytes # (Auto) 1.7 TH/MM3 Monocytes # (Auto) 0.8 TH/MM3 Eosinophils # (Auto) 0.2 TH/MM3 Basophils # (Auto) 0.2 TH/MM3 CBC Comment DIFF FINAL Differential Comment Prothrombin Time 10.7 SEC Prothromb Time International Ratio 1.1 RATIO Activated Partial Thromboplast Time 24.7 SEC Blood Urea Nitrogen 18 MG/DL Creatinine 0.63 MG/DL Random Glucose 99 MG/DL Total Protein 7.2 GM/DL Albumin 3.8 GM/DL Calcium Level 8.8 MG/DL Magnesium Level 2.1 MG/DL Alkaline Phosphatase 117 U/L Aspartate Amino Transf (AST/SGOT) 17 U/L Alanine Aminotransferase (ALT/SGPT) 21 U/L Total Bilirubin 0.4 MG/DL Sodium Level 140 MEQ/L Potassium Level 3.5 MEQ/L Chloride Level 102 MEQ/L Carbon Dioxide Level 26.6 MEQ/L Anion Gap 11 MEQ/L Estimat Glomerular Filtration Rate 95 ML/MIN Total Creatine Kinase 45 U/L Troponin I LESS THAN 0.02 NG/ML Lipase 254 U/L Urine Color YELLOW Urine Turbidity HAZY Urine pH 6.0 Urine Specific [place] 1.026 Urine Protein TRACE mg/dL Urine Glucose (UA) NEG mg/dL Urine Ketones 10 mg/dL Urine Occult Blood SMALL Urine Nitrite NEG Urine Bilirubin NEG Urine Urobilinogen 4.0 MG/DL Urine Leukocyte Esterase LARGE Urine RBC 10 /hpf Urine WBC 9 /hpf Urine Squamous Epithelial Cells 1 /hpf Urine Bacteria MANY /hpf Urine Mucus MANY /lpf Microscopic Urinalysis Comment CULTURE INDICATED MDM Medical Decision Making Medical Screen Exam Complete: Yes Emergency Medical Condition: Yes Medical Record Reviewed: Yes Differential Diagnosis Intracranial abnormality, versus tension headache, versus migraine headache, versus meningitis, versus subarachnoid hemorrhage, versus Narrative Course During the course of the patient's emergency department visit, the patient's history, examination, and differential diagnosis were reviewed with the patient. The patient was placed on a media developer with oximetry and frequent blood pressure monitoring. The patient had IV access obtained and blood work sent for analysis. The patient had a EKG done on arrival. The patient's EKG reveals a sinus rhythm heart rate of 61, QRS duration 96 ms, QTC [address] segment elevation. T waves are inverted in lead III, V1. The patient was initially provided Morphine 4 mg IV for pain, Compazine 5 mg IV for nausea, normal saline and IV fluid bolus. The patient on reexamination reported improvement of her headache, however she continued to have some discomfort in an additional morphine 2 mg IV was administered, along with Benadryl 25 mg IV. The patient reported resolution of her discomfort. The patient's laboratory studies were reviewed and remarkable for A white count of 8.7, hemoglobin 12.7, platelets 340 with monocytes 9.5, CMP is within normal limits, cardiac enzymes within normal limits, lipase 254, PT 10.7, PTT 24.7 urinalysis is suspicious for urinary tract infection with 10 ketones small occult blood for urobilinogen, leukocyte esterase is large with RBCs 10, WBCs 9 , many bacteria, culture indicated. The patient was given Rocephin 1 g IV. Radiology studies were reviewed and remarkable for Last Impressions CT Angiography 02/13/18233 Signed Impressions: CONCLUSION: 1. No evidence of PE. 2. No acute pulmonary infiltrates. Head CT 02/13/1831 Signed Impressions: CONCLUSION: 1. Unremarkable CT scan of the brain. Chest X-Ray 02/13/1831 Signed Impressions: CONCLUSION: No acute intrathoracic disease. A call was placed out to Dr. Vaughn, the patient's surgeon, at 4:50 AM. The patient's history, examination findings, laboratory studies, and imaging studies were reviewed with him. He was agreeable with the plan for the patient to be discharged home and follow-up with him in his clinic at the [facility] on Tuesday. I explained this to the patient. The patient will be discharged home Keflex for urinary tract infection. The patient will also be given hydrocodone for pain, and Phenergan for nausea. Review of the prescription drug monitoring database reveals no recent pain medication prescriptions other than a prescription for tramadol for 30 days on December 07. The patient is resting comfortably and feels better, is alert and in no distress. The patient's results and examination findings were discussed with the patient. The repeat examination is unremarkable and benign. The history, exam, diagnostic testing, and current condition do not suggest any significant pathology to warrant further testing, continued ED treatment, admission, or surgical evaluation at this point. The vital signs have been stable. The patient does not have uncontrollable pain, intractable vomiting, or other significant symptoms. The patient's condition is stable and appropriate for discharge. The patient will pursue further outpatient evaluation with a primary care physician or other designated or consulting physician as indicated in the discharge instructions. The patient is instructed to report back to the emergency department immediately for reexamination in the mean time if she develops any new or worsening signs or symptoms. The patient expressed understanding and was agreeable with this plan. Diagnosis Primary Impression: Headache Qualified Codes: R51 - Headache Additional Impressions: Nausea & vomiting Qualified Codes: R11.2 - Nausea with vomiting, unspecified UTI (urinary tract infection) Qualified Codes: N39.0 - Urinary tract infection, site not specified; R31.9 - Hematuria, unspecified Referrals: Ryan Vaughn MD 1 day Patient Instructions: Acute Nausea and Vomiting (ED), General Headache (ED), General Instructions, Urinary Tract Infection in Women (ED) Med/Other Pt SpecificInfo: Prescription(s) given Scripts Promethazine (Phenergan) 25 Mg Tablet 25 MG PO Q8HR Y for NAUSEA OR VOMITING, #7 TAB 0 Refills Prov: Lori Graves MD 02/13/18 Cephalexin (Keflex) 500 Mg Capsule 500 MG PO Q8H for Infection, #30 CAP 0 Refills Prov: Lori Graves MD 02/13/18 Hydrocodone-Acetaminophen (Hydrocodone-Acetaminophen) 5-325 mg Tab 1 TAB PO Q6H Y for PAIN, #9 TAB 0 Refills Prov: Lori Graves MD 02/13/18 Disposition: 01 DISCHARGE HOME Condition: Stable Lori Graves MD Feb 13, 2018 01:28
[2018-02-13 01:38] LABS: ALKALINE PHOSPHATASE 117 U/L (45-117); TOTAL BILIRUBIN ADULT 0.4 MG/DL (0.2-1.0); TOTAL PROTEIN 7.2 GM/DL (6.4-8.2); TROPONIN I LESS THAN 0.02 NG/ML (0.02-0.05)
[2018-02-13 01:39] LABS: ALBUMIN 3.8 GM/DL (3.4-5.0); ALT (GPT) 21 U/L (10-53); AST (GOT) 17 U/L (15-37); BICARBONATE 26.6 MEQ/L (21.0-32.0); BLOOD UREA NITROGEN 18 MG/DL (7-18); CALCIUM 8.8 MG/DL (8.5-10.1); CHLORIDE 102 MEQ/L (98-107); CREATININE 0.63 MG/DL (0.50-1.00); GLOMERULAR FILTRATION RATE 95 ML/MIN (>89); GLUCOSE,RANDOM 99 MG/DL (74-106); INTERNATIONAL NORMALIZED RATIO 1.1 RATIO; MAGNESIUM 2.1 MG/DL (1.5-2.5); PROTHROMBIN TIME - PATIENT 10.7 SEC (9.8-11.6); SODIUM (NA) 140 MEQ/L (136-145)
[2018-02-13] MEDS ORDERED: MORPHINE SULFATE 4 MG/ML INJ IV PUSH ONE (01:45)
[2018-02-13] MEDS ORDERED: SODIUM CHLOR 0.9% 1000 ML INJ 1,000 ML IV ONE ×2 (01:45→02:15)
[2018-02-13] MEDS ORDERED: PROCHLORPERAZINE INJ 10 MG/2 ML VIAL IV PUSH ONE (01:45)
[2018-02-13 02:09] VITALS: BP 150/71; PULSE 72; RESP 18; O2SAT 99
[2018-02-13] MEDS ORDERED: diphenhydrAMINE HCL 50 MG/ML VIAL IV PUSH ONE (03:15)
[2018-02-13] MEDS ORDERED: MORPHINE SULFATE 2 MG/ML SYRINGE IV PUSH ONE (03:15)
[2018-02-13 04:25] LABS: BACTERIA, URINE MANY /hpf; BILIRUBIN, URINE NEG (NEG); BLOOD, URINE SMALL (NEG); GLUCOSE,URINE NEG (NEG); KETONE, URINE 10 mg/dL (NEG); MUCUS URINE MANY /lpf (OCC); NITRITE,URINE NEG (NEG); SQUAMOUS EPITHELIAL CELL URINE 1 /hpf (0-5); URINE COLOR YELLOW (YELLW/STRAW); URINE LEUKOCYTE ESTERASE LARGE (NEG)
--- NOTE | 2018-02-13 04:43 | RADRPT ---
EXAM DATE: 02/13/2018 4:36 AM EDT AGE/SEX: 62 years / Female INDICATIONS: Back pain. History of DVT. CLINICAL DATA: This is the patient's initial encounter. Patient reports that signs and symptoms have been present for 1 day and indicates a pain score of 5/10. MEDICAL/SURGICAL HISTORY: Cardiovascular disease. Hypertension. Carcinoma, breast. DVT Cholecys tectomy. Hysterectomy. Mastectomy, bilateral. Gastric resection Bilateral knees RADIATION DOSE: 9.98 CTDI (mGy) COMPARISON: No prior [facility] exams available for comparison. TECHNIQUE: Volumetric scanning was performed using a multi-row detector CT scanner during bolus infu val of 75 ml Omnipaque 350 (iohexol) nonionic water-soluble contrast as a single exam dose. The ya a was post processed with a variety of visualization algorithms including full volume maximum intensi ty projection and sliding thin slab reformation. Using automated exposure control and adjustment of the mA and/or kV according to patient size, radiation dose was kept as low as reasonably achievable t o obtain optimal diagnostic quality images. FINDINGS: Pulmonary Arteries: No filling defects are seen in the pulmonary arteries out to the subsegmental ve ssels. The left and right pulmonary arteries are normal in diameter. Lung: No infiltrates seen. Effusion: None. Mediastinum: No evidence of mediastinal or hilar adenopathy. Other: The axilla is unremarkable. Single left-sided breast implant. CONCLUSION: 1. No evidence of PE. 2. No acute pulmonary infiltrates. Electronically signed by: Dez Mcfarland MD 02/13/2018 4:42 AM EDT
[2018-02-13] MEDS ORDERED: cefTRIAXone INJ 1,000 MG in SODIUM CHLORIDE 0.9% INJ 100 ML IV ONE (05:00)
[2018-02-13] MEDS ORDERED: CEPH-460 PO (05:02)
[2018-02-13] MEDS ORDERED: HYDR-3516 PO (05:02)
[2018-02-13] MEDS ORDERED: PROM25TA10 PO (05:06)
[2018-02-13 06:01] VITALS: BP 167/77; PULSE 77; RESP 18; O2SAT 98
--- NOTE | 2018-02-13 09:05 | EKG ---
Date Performed: 02/13/2018 Time Performed: 00:54:23 PTAGE: 62 years EKG: Sinus rhythm MODERATE VOLTAGE CRITERIA FOR LVH, CONSIDER NORMAL VARIANT BORDERLINE ECG PREVIOUS TRACING : 07/03/2015 10.57 Since the previous tracing, no significant change noted DOCTOR: Rajat De aL O Interpretating Date/Time 02/13/2018 09:04:17
== END 2018-02-13 06:04 | disposition home or self-care (01) ==
LOC: NEPC 23:53
DX: R51 Headache (principal); R11.2 Nausea with vomiting, unspecified; N39.0 Urinary tract infection, site not specified; B96.1 Klebsiella pneumoniae [K. pneumoniae] as the cause of diseases classified elsewhere
CPT/HCPCS: 70450; 71045; 71275; 80053; 81001; 82550; 83690; 83735; 84484; 85025; 85610; 85730; 87077; 87086; 87186; 93005; 96361; 96374; 96375; 96376; 99285; J0696; J0780; J1200; J2270; J7030; Q9967

== ENCOUNTER 2018-04-18 07:40 | Inpatient (IN) ==
[2018-04-18] MEDS ORDERED: Sodium Chlor 0.9% Inj 500 ML IV.SIG SCH (08:00)
[2018-04-18] MEDS ORDERED: Chlorhexidine Gluconate 2% 1 Pack (2 Cloths) TOPICAL SCH (08:00)
[2018-04-18] MEDS ORDERED: Metoprolol Tartrate 25 MG Tablet PO SCH (08:00)
[2018-04-18] MEDS ORDERED: CEFAZOLIN 2 GM IV.SIG SCH (08:00)
[2018-04-18] MEDS ORDERED: Lidocaine 1%/Epinephrine 1:100,000 Inj 30 ML Vial ONE (10:09)
[2018-04-18] MEDS ORDERED: Bupivacaine/Epinephrine PF Inj 0.5% 30 ML Vial ONE (10:10)
[2018-04-18] MEDS ORDERED: fentaNYL Citrate Inj 100 MCG/2 ML Ampul ONE (10:18)
[2018-04-18] MEDS ORDERED: Famotidine PF Inj 20 MG/2 ML Vial ONE (10:32)
[2018-04-18] MEDS ORDERED: *HYDROmorphone PF Inj 1 MG/ML Ampul PERIprocedural Use ONLY ONE ×2 (12:06→12:45)
[2018-04-18] MEDS ORDERED: *Meperidine Inj 25 MG/ML Vial PERIprocedural Use ONLY ONE (12:21)
[2018-04-18] MEDS ORDERED: Morphine Inj 4 MG/ML Vial ONE (13:08)
--- NOTE | 2018-04-18 13:41 | MP ---
cc: Ryan Vaughn MD DATE OF OPERATION: 04/18/2018 PREOPERATIVE DIAGNOSIS: Status post right breast mastectomy and previous removal of grounds manager. POSTOPERATIVE DIAGNOSIS: Status post right breast mastectomy and previous removal of grounds manager. OPERATION: Right breast repeat stage I reconstruction with new tissue grounds manager and AlloMax graft. SURGEON: Ryan Vaughn MD ANESTHESIA: General. INDICATIONS: This is a 63-year-old white female with bilateral mastectomies and bilateral tissue grounds manager done several months back. The right side had infected seroma abscess formation leading to removal of the grounds manager on that side. The left side has done well. The patient has healed over the past several months. After the removal of the grounds manager and wishes to go ahead with further reconstruction. She was also offered to check into muscle flaps and microvascular surgery including getting a second opinion. She wishes to not have any muscle reconstruction at this time and to go ahead and try a tissue grounds manager and AlloMax reconstruction a second time. She understands the basic risks and pros, cons and possible complications are similar to the previous surgeries including repeat infection, possible loss of reconstruction and future surgeries using alternate methods if she still wants to continue reconstructing the breasts. The left side is a 600 mL 133MV grounds manager filled to 580 mL. The same grounds manager will be used on the right, although the projection of the new grounds manager would be somewhat different than the one placed originally at the time of her mastectomy and immediate reconstruction where the pectoralis major muscle could not be . This time around, the medial border of the pectoralis can be to the advantage of the patient and the placement of the grounds manager can be monitored here. PROCEDURE: The patient was brought to the operating room, was placed in a supine position. Anesthesia was started. A prep and drape was done. IV antibiotics had been given. A timeout was called and completed. The previous surgical incision in the inframammary crease line was used. The area was injected. The previous scar was excised and also the borders of the pectoralis major muscle attachments were injected with Marcaine as well. The dissection was carried out sharply with a low power needlepoint Bovie to have a good tissue plane and hemostasis at the same time. The pectoralis major muscle was lifted off of the chest wall creating a subpectoral pocket as far medially and superiorly as possible. It was noted there was a small amount of previous pocket remaining. It had no fluid. It appeared clean and dry. A culture swab was taken from this spot as a routine sample. The lateral dissection was extended to the anterior axillary line and slightly beyond the inframammary fold and position was maintained. Bleeding was very minimal, less than a couple mL. Hemostasis was achieved mostly with the Bovie current and a single suture ligature on the lateral aspect near the lateral border of the pectoralis major muscle. The AlloMax graft was hydrated, treated with gentamicin solution. Serial #[id number] was used. The graft was sutured to the inframammary fold in the anterior axillary line positions keeping the smooth side towards the grounds manager. The excess AlloMax was removed at the folding line. [employer] catalog #[id number], serial #[id number]. The grounds manager was emptied of all the air. It was folded on the medial and superior aspect posteriorly to allow placement of the filling port in appropriate position. The AlloMax was smoothed over the grounds manager and the horizontal inframammary crease incision was closed in 3 layers using 2-0 Vicryl, 4-0 Vicryl, and 3-0 Prolene. Also, a small strip of skin was excised where it folded above the inframammary crease incision line in order to prevent a double fold. No drain was necessary. The grounds manager was filled with 200 mL of normal saline using a 3-way technique. All the areas were cleaned. A sterile dressing was applied. The patient remained stable. Intraoperative blood loss was less than 5 mL. No complications. signed, not fully reviewed MD ROMULO [address]/MARYJANE , 01:05 PM , 01:23 PM LYN
[2018-04-18] MEDS: HYDROmorphone PF Inj 2 MG/ML Vial IV.PUSH PRN (17:53)
[2018-04-19] MEDS: HYDROmorphone PF Inj 2 MG/ML Vial IV.PUSH PRN ×5 (00:57→17:52)
--- NOTE | 2018-04-19 11:37 | P.PN ---
Subjective Interval history: Patient doing well post op - still in "severe" pain. Wants to stay at least one more night - afraid that she can not get help at home. Lives in [place] - several miles away. OK to stay tonight. Right breast - flap soft, good color, normal temp. Suture line dressing not disturbed. 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 To walk OOB as much as tolerated. Plan DC home tomorrow Physical Exam Vital signs: Vital Signs 04/18/18 12:05 04/18/18 12:15 04/18/18 12:30 Temperature 97.9 F Pulse Rate 70 71 70 Respiratory Rate 16 16 16 Blood Pressure 110/57 L 113/65 132/64 Pulse Oximetry 96 96 93 L 04/18/18 12:45 04/18/18 13:00 04/18/18 13:15 Temperature 98 F Pulse Rate 75 72 78 Respiratory Rate 16 16 16 Blood Pressure 136/57 L 146/65 H 146/65 H Pulse Oximetry 98 97 96 04/18/18 13:30 04/18/18 14:07 04/18/18 15:30 Temperature 97.2 F L 97.4 F L Pulse Rate 75 77 78 Respiratory Rate 16 20 20 Blood Pressure 160/68 H 185/85 H 170/75 H Pulse Oximetry 96 92 L 93 L 04/18/18 20:00 04/19/18 00:00 04/19/18 08:00 Temperature 97.1 F L 98.5 F 98.2 F Pulse Rate 68 84 62 Respiratory Rate 20 18 18 Blood Pressure 156/90 H 179/85 H 152/69 H Pulse Oximetry 92 L 92 L 94 L Intake & Output 04/18/18 04/19/18 04/19/18 18:59 06:59 18:59 Intake Total 2300 / 2300 2530 / 2530 Balance 2300 / 2300 2530 / 2530 Weight 92 kg Intake: IV 1000 / 1000 1050 / 1050 LR 1000 mL Inj 1,000 ML @ 30 1000 / 1000 mls/hr IV.SIG .Q24H KACEY Rx#: [id number] Ancef 2 GM Premix Inj 2 gm In 50 / 50 50 ml @ 100 mls/hr IV.SIG CORE BAKER KACEY Rx#:[id number] Oral 0 / 0 1480 / 1480 Anesthesia Amount 800 / 800 Other 500 / 500 Other: # Voids 1 3 Weight On Admission 88.9 kg Results - Labs Microbiology 04/18/18 11:08 Wound - Breast Fungal Smear - Final No fungal elements seen 04/18/18 11:08 Wound - Breast Gram Stain - Final
[2018-04-20] MEDS: HYDROmorphone PF Inj 2 MG/ML Vial IV.PUSH PRN ×3 (00:11→09:23)
[2018-04-20 03:07] VITALS: PULSE 74; O2SAT 92
[2018-04-20 04:58] VITALS: RESP 16
[2018-04-20 09:39] VITALS: BP 146/70; TEMP 98.2
[2018-04-20] MEDS ORDERED: Hydroxychloroquine 200 MG Tablet PO SCH (21:00)
== END 2018-04-20 12:57 | disposition home or self-care (01) ==
LOC: PHSDC 07:40 → HSDI 07:40 → PH3 13:56
PROVIDERS: ADMIT Plastic Surgery; ATTEND Plastic Surgery

== ENCOUNTER 2018-08-22 06:06 | Inpatient (IN) ==
[2018-08-22] MEDS ORDERED: Chlorhexidine Gluconate 2% 1 Pack (2 Cloths) TOPICAL ONE (06:28)
[2018-08-22] MEDS ORDERED: Metoprolol Tartrate 25 MG Tablet PO ONE (06:28)
[2018-08-22] MEDS ORDERED: Sodium Chlor 0.9% Inj 500 ML IV.SIG SCH (07:00)
[2018-08-22] MEDS ORDERED: ceFAZolin 2 GM Premix Inj 2 GM/50 ML PIGGYBACK IV.SIG SCH (07:00)
[2018-08-22] MEDS ORDERED: Lidocaine 1%/Epinephrine 1:100,000 Inj 30 ML Vial ONE (07:17)
[2018-08-22] MEDS ORDERED: Lidocaine 1%/Epinephrine 1:100,000 Inj 50 ML Vial ONE (07:18)
[2018-08-22] MEDS ORDERED: EPINEPHrine PF/SF Inj 1 MG/ML Ampul I-OCULAR ONE (07:28)
[2018-08-22] MEDS ORDERED: *Promethazine Inj 25 MG/ML Vial PERIprocedural use ONLY ONE (13:11)
[2018-08-22] MEDS ORDERED: HYDROmorphone PF Inj 2 MG/ML Vial ONE (13:12)
[2018-08-22] MEDS ORDERED: fentaNYL Citrate Inj 100 MCG/2 ML Ampul ONE ×2 (13:16→13:17)
[2018-08-22] MEDS: ceFAZolin 1 GM Premix Inj 1 GM/50 ML PIGGYBACK IV.SIG SCH ×2 (15:30→22:27)
[2018-08-22] MEDS: HYDROmorphone PF Inj 0.5 MG/0.5 ML Syringe IV.PUSH PRN ×2 (16:20→20:19)
[2018-08-22] MEDS: Hydroxychloroquine 200 MG Tablet PO SCH (20:13)
[2018-08-23] MEDS: HYDROmorphone PF Inj 0.5 MG/0.5 ML Syringe IV.PUSH PRN ×4 (00:01→18:17)
[2018-08-23] MEDS: ceFAZolin 1 GM Premix Inj 1 GM/50 ML PIGGYBACK IV.SIG SCH ×3 (03:44→18:13)
--- NOTE | 2018-08-23 08:02 | P.PNPLA ---
Subjective Remarks: Patient doing well post op. Pain ++ both sides, afebrile, vitals good. Getting ready to take breakfast. Had small amount of bleed on Right side - dressing was reinforced last night. No change in breast size Both sides feel soft. Dressing changed Right side - Rotation flap has ecchymotic tip and upper edge with slight blood clot at the mid portion of the upper suture line. No clear hematoma in the breast itself. Will need to revise the flap and protect the Allomax lining from being exposed. To schedule in OR now. Objective Vital Signs: Vital Signs - 24 hr 08/22/18 13:15 08/22/18 13:30 08/22/18 13:45 Temperature 97.7 F Pulse Rate 69 50 L 57 L Respiratory Rate 16 14 14 Blood Pressure 136/67 136/60 138/57 L Pulse Oximetry 100 100 08/22/18 14:00 08/22/18 14:15 08/22/18 14:30 Temperature 97.6 F Pulse Rate 53 L 60 54 L Respiratory Rate 14 14 14 Blood Pressure 129/65 140/59 L 110/54 L Pulse Oximetry 100 99 96 08/22/18 14:45 08/22/18 15:00 08/22/18 15:15 Temperature 97.8 F Pulse Rate 56 L 63 60 Respiratory Rate 14 14 14 Blood Pressure 109/55 L 109/55 L 124/61 Pulse Oximetry 96 96 96 08/22/18 15:45 08/22/18 16:50 08/22/18 20:00 Temperature 97.8 F Pulse Rate 65 78 Respiratory Rate 16 18 20 Blood Pressure 119/58 L 139/74 Pulse Oximetry 96 95 08/23/18 00:00 Temperature 97.4 F L Pulse Rate 85 Respiratory Rate 20 Blood Pressure 127/74 Pulse Oximetry 97 Intake & Output 08/21/18 08/22/18 08/23/18 08/24/18 06:59 06:59 06:59 06:59 Intake Total 4520 / 4520 Output Total 200 / 200 Balance 4320 / 4320 Weight 88.904 kg 88 kg
[2018-08-23] MEDS: hydroCHLOROthiazide 25 MG Tablet PO SCH (08:09)
[2018-08-23] MEDS: Metoprolol Tartrate 25 MG Tablet PO SCH (08:09)
[2018-08-23] MEDS: Hydroxychloroquine 200 MG Tablet PO SCH ×2 (08:10→20:40)
--- NOTE | 2018-08-23 08:34 | P.OP ---
Preoperative Diagnosis: s/p Bilateral mastectomies and Bilateral breast Tissue linux vmware administrator reconstruction - Right side second tissue linux vmware administrator with asymmetry and tight lower pole Postoperative Diagnosis: s/p Bilateral mastectomies and Bilateral breast Tissue linux vmware administrator reconstruction - Right side second tissue linux vmware administrator with asymmetry and tight lower pole Procedure: Bilateral Breast tissue linux vmware administrator removal, Bilateral breast cavity reshaping, Right side rotation fasciocutaneous flap from lateral chest wall and Excision Left side lateral chest bra roll, bilateral breast reconstruction with silicone gel breast implants Anesthesia: SANDOVAL Surgeon: Ryan Vaughn MD Multimedia Coordinator: Javid Palencia Rn Estimated blood loss (mL): 100 Operation and Findings: Indications: Patient has had bilateral breast mastectomies and immediate TE / Allomax recon approx a year ago. Right side developed a lateral axillary area serma and eventually an abscess, requiring the TE to be removed. Had a second TE placed few month later and re-expanded. Left side has expanded normally, Right side tissues are tight from the additional scarring internally. Overall the TE are 580 / 560 cc volume now. Right side is positioned approx 3/4 inch higher and more medial compared to the left side from her second linux vmware administrator position being able to be placed more under the pectoralis muscle with release compared to the Left side where the Pec muscle still needs to be released medially. Patient was shown various implants and the second stage discussed and surgery explained including possible need to add soft tissues to the lower pole on the right side. Using a rotation flap from the side chest wall was explained. She understands the general risks and possible complications well and is willing to go ahead. The flap may necrose, bleeding, infection, loss of prosthesis and future reconstructions in general. Procedure: Patient was brought to the OR after preop work and IV antibiotics started. Anesthesia started. Bilateral bra rolls marked. Prep and drape done. Time out completed. Procedure started on the right side - original IMF incision line opened after local licodaine with Epi infiltration. Quality Compliance Coordinator gently on all sides and removed intact. Cavity double checked, IMF position is actually lower internally than the position of IMF on the left side, the capsule portion partially excised to raise it to a level equal to the left side with 2/0 internal sutures. Lateral extent also closed in after partial capsulectomy to the anterior axillary line. Medial and upper capsule release at the borders and also with radial scoring of the capsule and parts of the Pec muscle done. Hemostasis completed with cautery and sutures as needed. Cavity fitted with a 525 cc and then a 600 cc silicone temporary sizer. Similar procedure completed on the left side, adjusting the Lateral medial and IMF extents. Left side accommodated a 600 cc sizer easily and it was prepared at the opening with 2/0 Vicryl open sutures. Implant used was Captio [id number] SRM- 600. Serial number [id number], posterior tab verified and edges smoothed out. Vicryl sutures tied, protecting the lower pole of the implant. rest of the closure with 3/0 inverted vicryls. No drain necessary Right side rechecked - a 600 cc implant is too large to achieve closure due to the short lower pole tissues - A rotation flap designed based on the upper medial breast flap side, rotated into the IMF lower pole area with no tension, Allomax 8 x 16 cm hydrated and treated with gentamycin. applied to the lower edge and underside of the flap with 3/0 vicryls and to the edge of the previous Allomax that has integrated well into the upper flap. A 600 cc sizer was still too tight due to the additional volume of the flap itself, A slightly smaller 560 cc implant was used to accommodate the additional flap volume. SRM-560, serial number [id number], Flap closed with 2/0 Vicryls to the IMF side and 3/0 Vicryls and 4/0 Subcuticular running prolene for the superficial closure layers. Again, no drain needed. All areas cleaned and sterile dressings applied. Donor site on the right chest wall closed in three layers and also a similar excision on the bra roll done on the left side for better symmetry, closed in two layers of Vicryls, no need for prolene on this side.. Patient remained stable throughout surgery, no complications, Approx blood loss less than 100 cc total.
[2018-08-23] MEDS ORDERED: Lidocaine 1%/Epinephrine 1:100,000 Inj 50 ML Vial ONE (10:30)
[2018-08-23] MEDS ORDERED: Metoprolol Tartrate 25 MG Tablet PO ONE (10:38)
[2018-08-23] MEDS ORDERED: Chlorhexidine Gluconate 2% 1 Pack (2 Cloths) TOPICAL ONE (10:38)
[2018-08-23] MEDS ORDERED: fentaNYL Citrate Inj 250 MCG/5 ML Ampul ONE (10:47)
[2018-08-23] MEDS ORDERED: Sodium Chlor 0.9% Inj 500 ML IV.SIG SCH (11:00)
[2018-08-23] MEDS ORDERED: HYDROmorphone PF Inj 2 MG/ML Vial ONE (13:01)
[2018-08-23 13:50] LABS: Baso % (Auto) 0.4 % (0.0-2.0); Eos # (Auto) 0.2 th/mm3 (0.0-0.4); Eos % (Auto) 1.9 % (0.0-4.0); Hematocrit 30.5 % (35.0-46.0); Hemoglobin 9.7 gm/dL (11.6-15.3); Lymph # (Auto) 1.4 th/mm3 (1.0-4.8); Lymph % (Auto) 16.3 % (9.0-44.0); Mean Corpuscular HGB Conc 31.8 % (32.0-36.0); Mean Corpuscular Hemoglobin 28.8 pg (27.0-34.0); Mean Corpuscular Volume 90.4 fL (80.0-100.0); Mean Platelet Volume 8.9 fL (7.0-11.0); Mono # (Auto) 0.7 th/mm3 (0.0-0.9); Neut # (Auto) 6.5 th/mm3 (1.8-7.7); Neut % (Auto) 73.4 % (16.0-70.0); Platelet Count 323 th/mm3 (150-450); Red Blood Count 3.37 mil/mm3 (4.00-5.30); Red Cell Distribution Width 13.5 % (11.6-17.2); White Blood Count 8.8 th/mm3 (4.0-11.0)
[2018-08-23 14:19] LABS: Activated Partial Thrombo Time 22.9 sec (23.4-31.7); Prothrombin Time 10.3 sec (9.8-11.6)
--- NOTE | 2018-08-23 16:55 | P.PNPLA ---
Subjective Remarks: Patient stable post surgery today - pain much reduced. able to sleep now. Both breasts soft, no change in size. No spotting on dressings. SHANON drains less than a third full. Will start regular diet. Objective Vital Signs: Vital Signs - 24 hr 08/22/18 20:00 08/23/18 00:00 08/23/18 08:00 Temperature 97.8 F 97.4 F L 98.8 F Pulse Rate 78 85 77 Respiratory Rate 20 20 22 Blood Pressure 139/74 127/74 144/64 H Pulse Oximetry 95 97 95 08/23/18 10:44 08/23/18 12:50 08/23/18 13:00 Temperature 99.0 F 98.3 F Pulse Rate 76 86 74 Respiratory Rate 18 14 14 Blood Pressure 136/68 122/67 116/74 Pulse Oximetry 96 98 97 08/23/18 13:15 08/23/18 13:30 08/23/18 13:46 Temperature Pulse Rate 74 68 70 Respiratory Rate 14 14 14 Blood Pressure 120/58 L 109/61 113/60 Pulse Oximetry 96 96 96 08/23/18 14:00 Temperature 98.3 F Pulse Rate 75 Respiratory Rate 14 Blood Pressure 116/66 Pulse Oximetry 96 Intake & Output 08/21/18 08/22/18 08/23/18 08/24/18 06:59 06:59 06:59 06:59 Intake Total 5520 / 5520 800 / 800 Output Total 200 / 200 302 / 302 Balance 5320 / 5320 498 / 498 Weight 88.904 kg 88 kg Laboratory Results: Laboratory Results - last 24 hr 08/23/18 08/23/18 13:20 13:20 CBC w Diff Auto diff final WBC 8.8 RBC 3.37 L Hgb 9.7 L Hct 30.5 L MCV 90.4 MCH 28.8 MCHC 31.8 L RDW 13.5 Plt Count 323 MPV 8.9 Neut % (Auto) 73.4 H Lymph % (Auto) 16.3 [place] % (Auto) 8.0 Eos % (Auto) 1.9 Baso % (Auto) 0.4 Neut # (Auto) 6.5 Lymph # (Auto) 1.4 [place] # (Auto) 0.7 Eos # (Auto) 0.2 Baso # (Auto) 0.0 WBC Differential . Differential Comment . PT 10.3 INR 1.0 APTT 22.9 L Result Diagrams: 08/23/18 13:20
--- NOTE | 2018-08-23 19:40 | P.PNPLA ---
Subjective Remarks: Recheck - Left side dressing had dried blood when checked by nurse this evening - on the posterior aspect as per the patient. Feeling better and had dinner, also getting more sleep and resting. Left breast - soft, no changes in size, no bruising, incision line clean and dry. redressed. Right side too. rotation flap viable with mild edema, no hematoma or bruising, soft, drain site has dried blood spotting around the tube exits - ok to change tomorrow. SHANON on the chest side is empty. Breast side is holding at 1/3 full. Check again in am. Objective Vital Signs: Vital Signs - 24 hr 08/22/18 20:00 08/23/18 00:00 08/23/18 08:00 Temperature 97.8 F 97.4 F L 98.8 F Pulse Rate 78 85 77 Respiratory Rate 20 20 22 Blood Pressure 139/74 127/74 144/64 H Pulse Oximetry 95 97 95 08/23/18 10:44 08/23/18 12:50 08/23/18 13:00 Temperature 99.0 F 98.3 F Pulse Rate 76 86 74 Respiratory Rate 18 14 14 Blood Pressure 136/68 122/67 116/74 Pulse Oximetry 96 98 97 08/23/18 13:15 08/23/18 13:30 08/23/18 13:46 Temperature Pulse Rate 74 68 70 Respiratory Rate 14 14 14 Blood Pressure 120/58 L 109/61 113/60 Pulse Oximetry 96 96 96 08/23/18 14:00 08/23/18 16:00 Temperature 98.3 F 98.5 F Pulse Rate 75 79 Respiratory Rate 14 20 Blood Pressure 116/66 106/55 L Pulse Oximetry 96 96 Intake & Output 08/21/18 08/22/18 08/23/18 08/24/18 06:59 06:59 06:59 06:59 Intake Total 5520 / 5520 900 / 900 Output Total 200 / 200 302 / 302 Balance 5320 / 5320 598 / 598 Weight 88.904 kg 88 kg Laboratory Results: Laboratory Results - last 24 hr 08/23/18 08/23/18 13:20 13:20 CBC w Diff Auto diff final WBC 8.8 RBC 3.37 L Hgb 9.7 L Hct 30.5 L MCV 90.4 MCH 28.8 MCHC 31.8 L RDW 13.5 Plt Count 323 MPV 8.9 Neut % (Auto) 73.4 H Lymph % (Auto) 16.3 [place] % (Auto) 8.0 Eos % (Auto) 1.9 Baso % (Auto) 0.4 Neut # (Auto) 6.5 Lymph # (Auto) 1.4 [place] # (Auto) 0.7 Eos # (Auto) 0.2 Baso # (Auto) 0.0 WBC Differential . Differential Comment . PT 10.3 INR 1.0 APTT 22.9 L Result Diagrams: 08/23/18 13:20
[2018-08-24] MEDS: HYDROmorphone PF Inj 0.5 MG/0.5 ML Syringe IV.PUSH PRN ×3 (00:02→21:31)
[2018-08-24] MEDS: ceFAZolin 1 GM Premix Inj 1 GM/50 ML PIGGYBACK IV.SIG SCH ×5 (00:04→21:29)
--- NOTE | 2018-08-24 08:31 | P.PNPLA ---
Subjective Remarks: Patient stable, had slept through night. Pain dimiished Right side posterior drain - chest side has a clot at the skin on the outside - removed, no active bleeding from skin cut. Rest of the incision lines and flaps soft and warm. Breast soft, no changes in size. Left side stable as well Will keep her one more night to watch for any further bleeding or issues, plan DC tomorrow. Objective Vital Signs: Vital Signs - 24 hr 08/23/18 10:44 08/23/18 12:50 08/23/18 13:00 Temperature 99.0 F 98.3 F Pulse Rate 76 86 74 Respiratory Rate 18 14 14 Blood Pressure 136/68 122/67 116/74 Pulse Oximetry 96 98 97 08/23/18 13:15 08/23/18 13:30 08/23/18 13:46 Temperature Pulse Rate 74 68 70 Respiratory Rate 14 14 14 Blood Pressure 120/58 L 109/61 113/60 Pulse Oximetry 96 96 96 08/23/18 14:00 08/23/18 16:00 08/23/18 20:00 Temperature 98.3 F 98.5 F 99.0 F Pulse Rate 75 79 86 Respiratory Rate 14 20 20 Blood Pressure 116/66 106/55 L 107/55 L Pulse Oximetry 96 96 93 L 08/24/18 00:00 08/24/18 04:00 08/24/18 08:00 Temperature 100.7 F H 99.4 F 98.5 F Pulse Rate 91 H 85 Respiratory Rate 18 20 Blood Pressure 119/58 L 133/63 Pulse Oximetry 90 L 95 Intake & Output 08/22/18 08/23/18 08/24/18 08/25/18 06:59 06:59 06:59 06:59 Intake Total 5520 / 5520 2290 / 2290 Output Total 200 / 200 332 / 332 30 / 30 Balance 5320 / 5320 1957 / 1957 - / 30 Weight 88.904 kg 88 kg 88 kg Laboratory Results: Laboratory Results - last 24 hr 08/23/18 08/23/18 13:20 13:20 CBC w Diff Auto diff final WBC 8.8 RBC 3.37 L Hgb 9.7 L Hct 30.5 L MCV 90.4 MCH 28.8 MCHC 31.8 L RDW 13.5 Plt Count 323 MPV 8.9 Neut % (Auto) 73.4 H Lymph % (Auto) 16.3 [place] % (Auto) 8.0 Eos % (Auto) 1.9 Baso % (Auto) 0.4 Neut # (Auto) 6.5 Lymph # (Auto) 1.4 [place] # (Auto) 0.7 Eos # (Auto) 0.2 Baso # (Auto) 0.0 WBC Differential . Differential Comment . PT 10.3 INR 1.0 APTT 22.9 L Result Diagrams: 08/23/18 13:20
[2018-08-24] MEDS: hydroCHLOROthiazide 25 MG Tablet PO SCH (09:00)
[2018-08-24] MEDS: Hydroxychloroquine 200 MG Tablet PO SCH ×2 (09:01→21:29)
[2018-08-24] MEDS: Metoprolol Tartrate 25 MG Tablet PO SCH (09:04)
--- NOTE | 2018-08-24 10:46 | P.OP ---
Preoperative Diagnosis: Right breast partial necrosis of rotation flap - approx 1/3 on tip side Postoperative Diagnosis: Right breast partial necrosis of rotation flap - approx 1/3 on tip side Date of procedure: 08/23/18 Procedure: Right breast exploration resection of necrotic distal third of rotation flap Evacuation of hematoma from Right breast pocket and also Right side chest wall flap donor site Removal and replacement of Allomax graft and Silicone gel implant with new ones. Revision Right breast rotation flap and Right breast reconstruction Anesthesia: GETA Surgeon: Ryan Vaughn MD Estimated blood loss (mL): 150 Operation and Findings: Indications: Patient had bilateral breast second stage reconstruction yesterday - had a rotation fasciocutaneous flap from the right side chest wall for a tight lower pole. The rotation flap distal third on the tip side is devitalized and black today. Patient is being returned to the OR for excision of the non-viable flap and resetting of the remaining flap. During surgery, it was noted that she had a hematoma of approx 100 cc on the underside of the implant and around the periphery of the breast pocket. Also there was approximately 40 cc clot noted at the donor site of the rotation flap along the lateral chest wall. Procedure: Patient site marking done in holding. Brought to the OR. Anesthesia started. Prep and drape done, time out completed. She is on IV antibiotics. Surgery performed on the Right side only. Left side normal post op appearance and feel. Sutures holding the rotation flap and the underlying Allomax lining removed, black areas excised including the underlying fat and fascia layers. It was noted that there was a visible clot showing through the transparent implant on its' underside. Accordingly, the implant was removed and set aside on the sterile field - in Gentmycin/Saline solution. Hematoma noted to be covering the entire posterior chest wall and at the periphery of the breast cavity on all sides. All clots removed and cavity irrigated with warm saline and rechecked. Diffuse punctate bleeding was observed from several areas but no active arterial or large venous bleeder encountered. Cautery and packing with lap sponge used for several minutes. Also, the attachment of the flap base released to allow new positioning and advancement of the flap - additional small amount of clots noted and removed from the donor site as well - approximately half of the sutures removed from the donor site for good access. Total clots removed approx 100+40 cc. The oozing of blood still was noted in few areas - both in the breast pocket and in the donor site. Surgicel powder was used on all slow bleed areas and that seemed to control the bleeding finally. The Allomax graft was removed and discarded. Also, a new identical implant is available from yesterday's implants batch. The old one was discarded. Two SHANON drains were inserted, one in the breast pocket and one in the donor site separately. The Rotation flap was advanced in to the defect of the lower pole and secured with a stitch at the tip position. New Allomax - hydrated and treated with Gentamycin used, 8x16 cm, trimmed to fit. It was sutured to the inside edge of the old integrated Allomax from the tissue postal service window clerk placement surgery back in April 2018. and the lower edge was sutured to the lower edge of the Rotation flap with some excess allowed to line the remaining lower pole cavity. 2/0 Vicryl open sutures were placed at the final opening and the implant was placed and oriented in the breast pocket. Serial number [id number], Catalogue reference # SRM-560. Breast pocket was closed and the rest of the layers closed with 3/0 Vicryls and 4/0 Prolene SC. Donor site also closed in deep Vicryl and skin Prolene sutures. Drains secured and activated. All areas cleaned and sterile non-pressure dressing applied. The rotation flap color and capillary refill was satisfactory. Intraoperative blood loss approx 150 cc total including 140 cc old clots. No complications, patient stable. Ryan Vaughn MD, FACS
[2018-08-24] MEDS ORDERED: Lidocaine PF 1% Inj 5 ML Vial I-DERMAL ONE (16:00)
[2018-08-24] MEDS ORDERED: Lidocaine 2%/Epinephrine 1:200,000 PF Inj 20 ML Vial INFILTRATN ONE (16:00)
[2018-08-24] MEDS ORDERED: Sodium Bicarbonate 8.4% Inj 50 MEQ/50 ML Syringe IV.SIG ONE (16:00)
--- NOTE | 2018-08-24 16:10 | P.PNPLA ---
Subjective Remarks: Call from nurse - Active bleeding from the posterior drain tube site exit skin - has changed dressing twice and has about a spoon full of blood clot in the dressing. Checked the area - Right side chest wall drain exit site has continued red fresh blood leaking - dripping from superficial skin level source. The rest of the incision lines posteriorly and the areas of the breast /flap are not showing any new changes. Left breast also stable. Discussed any undiagnosed bleeding disorder possibility with patient - she is not aware of any in herself and mother side but has no information from the father's side. Will ask for medical consult to look into this. Bleeding controlled at bed side with a deep encircling suture - 3/0 Nylon - using local anesthetic Lidocaine with Epi and sodium bicarb mix, alcohol prep and sterile drapes used, area watched for three to four minutes - no more bleeding and no sign of a deep hematoma forming around the tube. Will watch for any further bleeding. Also will plan to keep over the week end while medical evaluation can be done. Objective Vital Signs: Vital Signs - 24 hr 08/23/18 20:00 08/24/18 00:00 08/24/18 04:00 Temperature 99.0 F 100.7 F H 99.4 F Pulse Rate 86 91 H Respiratory Rate 20 18 Blood Pressure 107/55 L 119/58 L Pulse Oximetry 93 L 90 L 08/24/18 07:56 08/24/18 08:00 08/24/18 09:28 Temperature 98.5 F Pulse Rate 85 Respiratory Rate 18 20 18 Blood Pressure 133/63 Pulse Oximetry 95 08/24/18 12:00 08/24/18 13:23 Temperature 98.8 F Pulse Rate 82 Respiratory Rate 20 18 Blood Pressure 176/78 H Pulse Oximetry 96 Intake & Output 08/22/18 08/23/18 08/24/18 08/25/18 06:59 06:59 06:59 06:59 Intake Total 5520 / 5520 2290 / 2290 1530 / 1530 Output Total 200 / 200 332 / 332 830 / 830 Balance 5320 / 5320 1957 / 1957 700 / 700 Weight 88.904 kg 88 kg 88 kg Result Diagrams: 08/23/18 13:20
[2018-08-25] MEDS: HYDROmorphone PF Inj 0.5 MG/0.5 ML Syringe IV.PUSH PRN ×6 (01:56→21:10)
[2018-08-25] MEDS: ceFAZolin 1 GM Premix Inj 1 GM/50 ML PIGGYBACK IV.SIG SCH ×4 (05:45→21:08)
[2018-08-25] MEDS: hydroCHLOROthiazide 25 MG Tablet PO SCH (08:40)
[2018-08-25] MEDS: Hydroxychloroquine 200 MG Tablet PO SCH ×2 (08:41→21:09)
[2018-08-25] MEDS: Metoprolol Tartrate 25 MG Tablet PO SCH (08:42)
[2018-08-25 10:42] LABS: Chloride 98 meq/L (98-107); Potassium 3.6 meq/L (3.5-5.1); Sodium 136 meq/L (136-145)
[2018-08-25 10:45] LABS: Albumin 2.7 g/dL (3.4-5.0); Anion Gap 7 meq/L (5-15); Blood Urea Nitrogen 8 mg/dL (7-18); Calcium 8.1 mg/dL (8.5-10.1); Carbon Dioxide 31.2 meq/L (21.0-32.0); Glucose,Random 103 mg/dL (74-106)
[2018-08-25 10:48] LABS: Alanine Aminotransferase 11 U/L (10-53); Aspartate Aminotransferase 14 U/L (15-37)
[2018-08-25 10:49] LABS: Glomerular Filtration Rate Greater Than 89 mL/min (>89)
[2018-08-25 10:50] LABS: Total Protein 5.8 g/dL (6.4-8.2)
[2018-08-25 10:51] LABS: Alkaline Phosphatase 73 U/L (45-117)
[2018-08-25 10:55] LABS: Activated Partial Thrombo Time 27.1 sec (23.4-31.7); Prothrombin Time 10.3 sec (9.8-11.6)
--- NOTE | 2018-08-25 14:20 | P.PNPLA ---
Subjective Remarks: Patient stable, no new bleeding. Vitals good. Both breast soft and warm. Drains thinning out. Awaiting hematology consult. Plan DC home tomorrow. Objective Vital Signs: Vital Signs - 24 hr 08/24/18 16:00 08/24/18 17:34 08/24/18 20:00 Temperature 97.8 F 97.6 F Pulse Rate 70 67 Respiratory Rate 21 18 18 Blood Pressure 155/70 H 161/69 H Pulse Oximetry 95 94 L 08/25/18 00:00 08/25/18 08:00 08/25/18 10:40 Temperature 98.5 F 98.3 F Pulse Rate 76 74 Respiratory Rate 18 19 18 Blood Pressure 175/74 H 174/74 H Pulse Oximetry 93 L 95 08/25/18 12:00 Temperature 98.7 F Pulse Rate 75 Respiratory Rate 20 Blood Pressure 185/79 H Pulse Oximetry 97 Intake & Output 08/23/18 08/24/18 08/25/18 08/26/18 06:59 06:59 06:59 06:59 Intake Total 5520 / 5520 2290 / 2290 3920 / 3920 1290 / 1290 Output Total 200 / 200 332 / 332 2405 / 2405 300 / 300 Balance 5320 / 5320 1958 / 1958 1515 / 1515 990 / 990 Weight 88 kg 88 kg 90.1 kg Laboratory Results: Laboratory Results - last 24 hr 08/25/18 08/25/18 10:10 10:10 PT 10.3 INR 1.0 APTT 27.1 Fibrinogen 491 H Sodium 136 Potassium 3.6 Chloride 98 Carbon Dioxide 31.2 Anion Gap 7 BUN 8 Creatinine 0.40 L Estimated GFR Greater than 89 Random Glucose 103 Calcium 8.1 L Total Bilirubin 0.4 AST 14 L ALT 11 Alkaline Phosphatase 73 Total Protein 5.8 L Albumin 2.7 L Result Diagrams: 08/23/18 13:20 08/25/18 10:10
[2018-08-25] MEDS ORDERED: Influenza (Quadrivalent) Vaccine 0.5 ML Syringe IM ONE (15:00)
--- NOTE | 2018-08-25 16:30 | P.CON ---
History of Present Illness Service: Hematology/oncology. Consult date: 08/25/18 Requesting Physician: Ryan Vaughn Reason for Consult: Excessive bleeding following right breast reconstruction. Primary Care Provider: Elizabeth Giraldo MD ([place]). Chief Complaint: Bleeding from right breast reconstruction incisions. History of Present Illness: Ms. Sebastian is a very pleasant 63-year-old female who was diagnosed in the early part of 2017 with a ductal carcinoma in situ of the right breast. Her disease is strongly estrogen receptor positive, she underwent staging studies with breast MRI which revealed multifocal disease. She was subsequently recommended a right breast mastectomy. This was performed, patient underwent intraoperative breast supervisor pipe finishing placement with the intention of placing breast implant at a later date. Shortly after undergoing surgery she developed MRSA sepsis which required hospitalization at a hospital in [place]. The patient subsequently delayed breast reconstruction up until now. On 2017 the patient was electively admitted for right breast supervisor pipe finishing removal and implant placement. Postoperatively she was noted to have excessive bleeding from the surgical incisions and surgical drains. On 08/24/2018 she underwent a second surgery for hematoma evacuation. Preoperative reports on 08/24/2018 approximately 140 cc of a hematoma was evacuated and 10 additional cc of fresh blood was evacuated. Over the past 24 hours she has had improved hemostasis. I had a long discussion with patient today, the patient tells me she has in the past been evaluated by a director industrial nursing in the [place], [place] area for easy bleeding. She describes having had very heavy menstrual cycles prior to undergoing hysterectomy. She underwent a hysterectomy at the age of 23 for management of severe endometriosis and heavy menstrual cycles. Additionally, the patient reports undergoing knee replacements in the past, following 1 of her knee replacements she required a second surgery for hematoma evacuation. She describes having required blood transfusions on various occasions for management of severe anemia. She denies knowledge of a formal bleeding disorder. She does not recall the outcome of the previous workup she had with the director industrial nursing in the [place] area. Other than her diagnosis of DCIS of the right breast she reports having a diagnosis of lupus for which she is on treatment with Plaquenil under the care of her wheel fitter Dr. Choudhury with the [facility] in [place]. Additionally, patient reports being diagnosed approximately 10 years ago with pulmonary emboli. The pulmonary emboli occurred in the setting of her having undergone knee replacement surgery. She tells me she was treated for approximately 6 months with warfarin and was subsequently taken off of warfarin. During this episode she was also found to have a blood clot in her calf on the ipsilateral side of the knee replacement. Review of Systems No: All other systems reviewed negative except as stated in HPI Constitutional: Denies anorexia Eyes: Denies blind spots, Denies loss of vision Ears, Nose, Mouth, and Throat: Denies change in voice, Denies throat swelling Cardiovascular: Denies chest pain, Denies chest pain at rest, Denies shortness of breath Respiratory: Denies chest congestion, Denies cough, Denies snoring Gastrointestinal: Denies abdominal pain, Denies black, tarry stools, Denies bloating, Denies bright, red blood in stools, Denies incontinent of stools, Denies vomiting, Denies vomiting blood Genitourinary: Denies abnormal periods, Denies blood in urine Musculoskeletal: Denies abnormal walking Skin/Breast: Denies acne, Denies skin ulcer, Denies sores, Denies yellowing of the skin Neurologic: Denies abnormal hearing, Denies dizziness, Denies fainting Psychiatric: Denies anxiety Endocrine: Denies cold intolerance Hematologic/Lymphatic: Reports easy bleeding (Lifelong history of easy bruising. ) Allergic/Immunologic: Denies GI upset with certain foods PMFSH - History History Provided By: Patient - Medical History Medical History: Medical History (Last Updated 08/25/18 @ 16:13 by Aaron Valencia MD) Ductal carcinoma in situ (DCIS) of breast Allergic eczema Anemia Arthritis of both hips Cervical spine pain Chronic back pain GERD (gastroesophageal reflux disease) Hearing loss History of traumatic injury of head Hx of deep venous thrombosis Hx of hysterectomy Hyperlipidemia Hypertension Insomnia Major depression Osteopenia Palpitations TMJ syndrome Tinnitus Vertigo - Surgical History Surgical History: Surgical History (Last Reviewed 08/25/18 @ 16:13 by Aaron Valencia MD) Hx of abdominal surgery Hx of foot surgery Hx of left knee surgery Hx of neck surgery Hx of right knee surgery Hx of shoulder surgery - Social History I have reviewed the patient's Social History: Yes - Tobacco History Second Hand Smoke Exposure: No Smoking Status: Never smoker - Alcohol History How Often Do You Have a Drink Containing Alcohol: Monthly or less - Substance Use History Substance History: No History of Abuse - Travel History Recent Travel in the [place] Within the Last 8 Weeks: No Recent Travel Out of the Country Within the Last 8 Weeks: No - Immunization History Tetanus Immunization: Unsure Hx Influenza Vaccine This Season: No Medications and Allergies Active Medications: Active Medications Duloxetine HCl (Cymbalta) 90 mg PO DAILY [facility] Last Admin: 08/25/18 08:41 Dose: 90 mg Hydrochlorothiazide (Hydrodiuril) 12.5 mg PO DAILY [facility] Last Admin: 08/25/18 08:40 Dose: 12.5 mg Hydromorphone HCl (Dilaudid Pf Inj) 0.5 mg IV.PUSH Q4H PRN PRN Reason: PAIN 6-10 Last Admin: 08/25/18 13:36 Dose: 0.5 mg Hydromorphone HCl (Dilaudid) 2 mg PO Q4H PRN PRN Reason: PAIN 1-5 Last Admin: 08/24/18 17:04 Dose: 2 mg Hydromorphone HCl (Dilaudid) 2 mg PO Q4H PRN PRN Reason: 3-5 Last Admin: 08/23/18 08:46 Dose: 2 mg Hydroxychloroquine Sulfate (Plaquenil) 200 mg PO BID [facility] Last Admin: 08/25/18 08:41 Dose: 200 mg Sodium Chloride (Ns Inj) 500 mls @ 30 mls/hr IV.SIG .Q10H [facility] Last Admin: 08/22/18 09:06 Dose: Not Given Lactated Ringer's (Lr 1000 Ml Inj) 1,000 mls @ 100 mls/hr IV.SIG .Q10H [facility] Last Admin: 08/25/18 13:39 Dose: 100 mls/hr Cefazolin Sodium/Dextrose (Ancef 1 Gm Premix Inj) 1 gm in 50 mls @ 100 mls/hr IV.SIG Q6H [facility] Last Infusion: 08/25/18 10:41 Dose: Infused Sodium Chloride (Ns Inj) 500 mls @ 30 mls/hr IV.SIG .Q10H [facility] Last Admin: 08/23/18 10:48 Dose: Not Given Metoprolol Tartrate (Lopressor) 25 mg PO DAILY [facility] Last Admin: 08/25/18 08:42 Dose: Not Given Multivitamins (Theragran) 1 tab PO DAILY [facility] Last Admin: 08/25/18 08:42 Dose: 1 tab Ondansetron HCl (Zofran Odt) 4 mg SL Q6H PRN PRN Reason: NAUSEA Last Admin: 08/24/18 14:29 Dose: 4 mg Ondansetron HCl (Zofran Inj) 4 mg IV.PUSH Q6H PRN PRN Reason: NAUSEA Last Admin: 08/25/18 10:11 Dose: 4 mg Pantoprazole Sodium (Protonix) 40 mg PO DAILY [facility] Last Admin: 08/25/18 08:41 Dose: 40 mg Allergies Allergy/AdvReac Type Severity Reaction Status Date / Time codeine Allergy Severe Hives Verified 07/07/18 23:19 diclofenac Allergy Severe HIVES TO Verified 07/07/18 23:19 MECLOMEN,NALFON,TOLECTIN etodolac Allergy Severe HIVES TO Verified 07/07/18 23:19 MECLOMEN,NALFON,TOLECTIN fenoprofen Allergy Severe Hives Verified 07/07/18 23:19 flurbiprofen Allergy Severe HIVES TO Verified 07/07/18 23:19 MECLOMEN,NALFON,TOLECTIN indomethacin Allergy Severe HIVES TO Verified 07/07/18 23:19 MECLOMEN,NALFON,TOLECTIN ketoprofen Allergy Severe HIVES TO Verified 07/07/18 23:19 MECLOMEN,NALFON,TOLECTIN ketorolac Allergy Severe HIVES TO Verified 07/07/18 23:19 MECLOMEN,NALFON,TOLECTIN meclofenamic acid Allergy Severe Hives Verified 07/07/18 23:19 naproxen Allergy Severe HIVES TO Verified 04/18/18 08:33 MECLOMEN,NALFON,TOLECTIN oxaprozin Allergy Severe HIVES TO Verified 04/18/18 08:33 MECLOMEN,NALFON,TOLECTIN sulfamethoxazole Allergy Severe Nausea/Vomi Verified 04/18/18 08:33 ting trimethoprim Allergy Severe Nausea/Vomi Verified 04/18/18 08:33 ting milk AdvReac Intermediate Diarrhea Verified 04/18/18 08:33 Home Medications Medication Instructions Recorded Confirmed Type duloxetine 90 mg PO DAILY 04/17/18 07/08/18 History hydrochlorothiazide 12.5 mg PO DAILY 04/17/18 07/08/18 History ibuprofen 800 mg PO BID PRN 04/17/18 07/08/18 History multivitamin [Daily Multiple] 1 tab PO DAILY 04/17/18 07/08/18 History omeprazole 40 mg PO DAILY 04/17/18 07/08/18 History metoprolol tartrate 25 mg PO DAILY 07/08/18 07/08/18 History Physical Exam Vital signs: Vital Signs 08/24/18 17:34 08/24/18 20:00 08/25/18 00:00 Temperature 97.6 F 98.5 F Pulse Rate 67 76 Respiratory Rate 18 18 18 Blood Pressure 161/69 H 175/74 H Pulse Oximetry 94 L 93 L 08/25/18 08:00 08/25/18 10:40 08/25/18 12:00 Temperature 98.3 F 98.7 F Pulse Rate 74 75 Respiratory Rate 19 18 20 Blood Pressure 174/74 H 185/79 H Pulse Oximetry 95 97 08/25/18 14:06 Temperature Pulse Rate Respiratory Rate 18 Blood Pressure Pulse Oximetry Intake & Output 08/24/18 08/25/18 08/25/18 18:59 06:59 18:59 Intake Total 2760 / 2760 1160 / 1160 1290 / 1290 Output Total 2370 / 2370 35 / 35 300 / 300 Balance 390 / 390 1125 / 1125 990 / 990 Weight 90.1 kg Intake: IV 1500 / 1500 1100 / 1100 1050 / 1050 LR 1000 mL Inj 1,000 ML @ 100 1400 / 1400 1000 / 1000 1000 / 1000 mls/hr IV.SIG .Q10H [facility] Rx#: [id number] Ancef 1 GM Premix Inj 1 gm In 100 / 100 100 / 100 50 / 50 50 ml @ 100 mls/hr IV.SIG Q6H [facility] Rx#:[id number] Oral 1260 / 1260 60 / 60 240 / 240 Output: Urine 2100 / 2100 300 / 300 Emesis 120 / 120 Wound Drainage 150 / 150 35 / 35 # 2 Right Breast 150 / 150 35 / 35 Other: # Voids 2 Date of Last Bowel Movement 08/21/18 # Emeses 1 Narrative: General: Patient is a middle-aged female, laying in bed, appears to be no acute distress, she has a pleasant disposition. Appears to be mildly pale. HEENT: Head atraumatic normocephalic, conjunctivae mildly pale, sclerae anicteric, EOMI, PERRLA, oral exam no pharyngeal erythema. Neck exam no palpable cervical supraclavicular lymphadenopathy. Respiratory: Good air movement bilaterally over the upper and middle lung zones. Diminished bibasilar breath sounds. No evidence of rhonchi or rales. Cardiovascular: Regular rate and rhythm, S1-S2 no obvious murmurs rubs gallops. Good peripheral pulses. No peripheral edema. No lower extremity edema. GI: Obese belly, soft, previous surgical incision scars noted, no palpable organ enlargement. Specifically no hepato-splenomegaly. Lower extremities: No pretibial edema no calf tenderness. Good peripheral pulses. Skin examination: Nonfocal other than right breast exam which is documented elsewhere. Examination of the right anterior chest wall: Examination performed in the presence of female nurse tank hoop bender. Surgical incisions noted, surgical dressing noted to be mildly tinged with blood. 2 SHANON drains are noted, one is draining serosanguineous liquid, the other one has maroon colored clots. No active bleeding is appreciated. Reconstructed breast was evaluated in a limited manner. No obvious masses appreciated, examination limited by tenderness. 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 Results - Labs CBC & Chem 7: 08/23/18 13:20 08/25/18 10:10 Labs: Laboratory Results - last 24 hr 08/25/18 08/25/18 10:10 10:10 PT 10.3 INR 1.0 APTT 27.1 Fibrinogen 491 H Sodium 136 Potassium 3.6 Chloride 98 Carbon Dioxide 31.2 Anion Gap 7 BUN 8 Creatinine 0.40 L Estimated GFR Greater than 89 Random Glucose 103 Calcium 8.1 L Total Bilirubin 0.4 AST 14 L ALT 11 Alkaline Phosphatase 73 Total Protein 5.8 L Albumin 2.7 L Assessment and Plan - Plan Ms. Sebastian is a 63-year-old female with a diagnosis of ductal carcinoma in situ of the right breast initially diagnosed in the early part of 2016. She is status post right breast mastectomy, her disease was estrogen receptor positive. She had been on observation ever since. At the time of initial surgical resection she underwent placement of a tissue supervisor pipe finishing and shortly thereafter developed MRSA sepsis requiring prolonged hospitalization and IV antibiotics, it is not clear to me whether the supervisor pipe finishing was removed at that time. The patient delayed additional reconstruction up until now; on 2017 she was admitted to this facility and underwent right breast implant placement and reconstruction. She was noted to have significant postoperative bleeding, she required surgical intervention with removal of the hematoma on . Patient reports having had similar episodes in the past such as after she underwent knee replacement about 10 years ago, she at that time required a second surgery to evacuate hematoma. Her other medical comorbid conditions include lupus, she is on Plaquenil for management of lupus. She denies any history of vasculitis, she does report significant arthritis related issues. The hematology service has been asked to see her to rule out an underlying hematologic disorder such as a bleeding disorder which has previously been undiagnosed. Differential diagnoses indeed include an undiagnosed bleeding disorder such as von Willebrand's disease, underlying platelet dysfunction, impairment of clot stability secondary to factor XIII deficiency or an underlying vasculitis/mixed connective tissue disorder which may be contributing to hemostasis. It should be noted that the patient has undergone blood work including CBC, CMP , PT, PTT, INR and fibrinogen levels. The only abnormality appreciated was elevated fibrinogen level which may be reactive. Recommendations: 1. Suspected underlying bleeding disorder: I requested a von Willebrand panel, factor XIII level assessment to assess for hot stabilizing factor activity, factor VIII level as well as platelet function analysis. To this workup I will also add on an DRU to assess for possible underlying mixed connective tissue disorder. 2. Anemia: I have started the patient on oral ferrous sulfate 325 mg twice daily. The patient not to be discharged home on this for management of anemia. 3. The patient should be ready for discharge home should hemostasis be established. I will schedule outpatient follow-up with myself in the upcoming weeks.
[2018-08-25] MEDS: Ferrous Sulfate 325 MG Tablet PO SCH (21:09)
[2018-08-26] MEDS: HYDROmorphone PF Inj 0.5 MG/0.5 ML Syringe IV.PUSH PRN (01:24)
[2018-08-26] MEDS: ceFAZolin 1 GM Premix Inj 1 GM/50 ML PIGGYBACK IV.SIG SCH ×2 (03:53→09:42)
[2018-08-26 07:45] LABS: Baso % (Auto) 0.3 % (0.0-2.0); Eos # (Auto) 0.3 th/mm3 (0.0-0.4); Eos % (Auto) 4.9 % (0.0-4.0); Hemoglobin 8.8 gm/dL (11.6-15.3); Lymph # (Auto) 1.1 th/mm3 (1.0-4.8); Lymph % (Auto) 18.7 % (9.0-44.0); Mean Corpuscular HGB Conc 32.5 % (32.0-36.0); Mean Corpuscular Hemoglobin 29.1 pg (27.0-34.0); Mean Corpuscular Volume 89.6 fL (80.0-100.0); Mean Platelet Volume 8.9 fL (7.0-11.0); Mono # (Auto) 0.4 th/mm3 (0.0-0.9); Mono % (Auto) 7.7 % (0.0-8.0); Neut % (Auto) 68.4 % (16.0-70.0); Platelet Count 356 th/mm3 (150-450); Red Blood Count 3.01 mil/mm3 (4.00-5.30); Red Cell Distribution Width 13.1 % (11.6-17.2); White Blood Count 5.8 th/mm3 (4.0-11.0)
[2018-08-26] MEDS: hydroCHLOROthiazide 25 MG Tablet PO SCH (08:00)
[2018-08-26] MEDS: Metoprolol Tartrate 25 MG Tablet PO SCH (08:00)
[2018-08-26] MEDS: Hydroxychloroquine 200 MG Tablet PO SCH (08:01)
[2018-08-26] MEDS: Ferrous Sulfate 325 MG Tablet PO SCH (08:01)
--- NOTE | 2018-08-26 09:24 | P.PNPLA ---
Subjective Remarks: Patient doing well, feels better and stronger. 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 Rotation flap tip and flap also look good, viable, no black areas. Plan: DC home today - Will FU with Hematology outpatient as well. Tuesday to see me in [facility] clinic. Objective Vital Signs: Vital Signs - 24 hr 08/25/18 10:40 08/25/18 12:00 08/25/18 14:06 Temperature 98.7 F Pulse Rate 75 Respiratory Rate 18 20 18 Blood Pressure 185/79 H Pulse Oximetry 97 08/25/18 16:00 08/25/18 17:24 08/25/18 20:00 Temperature 98.8 F 98.4 F Pulse Rate 70 69 Respiratory Rate 20 18 18 Blood Pressure 168/75 H 152/69 H Pulse Oximetry 96 94 L 08/26/18 00:00 08/26/18 08:00 08/26/18 08:27 Temperature 98.2 F 97.5 F L Pulse Rate 71 69 Respiratory Rate 17 18 Blood Pressure 147/71 H 176/79 H Pulse Oximetry 94 L 94 L Intake & Output 08/24/18 08/25/18 08/26/18 08/27/18 06:59 06:59 06:59 06:59 Intake Total 2290 / 2290 3920 / 3920 4240 / 4240 Output Total 332 / 332 2405 / 2405 1905 / 1905 Balance 1957 / 1957 1515 / 1515 2335 / 2335 Weight 88 kg 90.1 kg 89.9 kg Laboratory Results: Laboratory Results - last 24 hr 08/25/18 08/25/18 08/26/18 10:10 10:10 06:57 CBC w Diff Auto diff final WBC 5.8 RBC 3.01 L Hgb 8.8 L Hct 27.0 L MCV 89.6 MCH 29.1 MCHC 32.5 RDW 13.1 Plt Count 356 MPV 8.9 Neut % (Auto) 68.4 Lymph % (Auto) 18.7 Pratt % (Auto) 7.7 Eos % (Auto) 4.9 H Baso % (Auto) 0.3 Neut # (Auto) 4.0 Lymph # (Auto) 1.1 Pratt # (Auto) 0.4 Eos # (Auto) 0.3 Baso # (Auto) 0.0 WBC Differential . Differential Comment . PT 10.3 INR 1.0 APTT 27.1 Fibrinogen 491 H Sodium 136 Potassium 3.6 Chloride 98 Carbon Dioxide 31.2 Anion Gap 7 BUN 8 Creatinine 0.40 L Estimated GFR Greater than 89 Random Glucose 103 Calcium 8.1 L Total Bilirubin 0.4 AST 14 L ALT 11 Alkaline Phosphatase 73 Total Protein 5.8 L Albumin 2.7 L Result Diagrams: 08/26/18 06:57 08/25/18 10:10
[2018-09-08] MEDS ORDERED: Influenza (Quadrivalent) Vaccine 0.5 ML Syringe IM ONE (16:30)
== END 2018-08-26 12:46 | disposition home or self-care (01) ==
LOC: PHSDC 06:06 → PH3 06:06
PROVIDERS: ADMIT Plastic Surgery; ATTEND Plastic Surgery

== ENCOUNTER 2018-09-17 09:47 | Inpatient (IN) ==
--- NOTE | 2018-09-17 10:55 | ED ---
HPI General Chief complaint: Skin/Abscess/Foreign Body Stated complaint: Right Breast Complaint Time Seen by Provider: 09/17/18 10:23 Source: patient Mode of arrival: ambulatory Limitations: no limitations History of Present Illness HPI narrative: 63-year-old female presents with drainage from her right breast with infection. She is here to have Dr. Vaughn you take her to the operating room. He is present in the emergency room and will be taking her shortly Related Data Home Medications Medication Instructions Recorded Confirmed duloxetine 90 mg PO DAILY 04/17/18 09/17/18 hydrochlorothiazide 12.5 mg PO DAILY 04/17/18 09/17/18 ibuprofen 800 mg PO BID PRN 04/17/18 09/17/18 multivitamin [Daily Multiple] 1 tab PO DAILY 04/17/18 09/17/18 omeprazole 40 mg PO DAILY 04/17/18 09/17/18 metoprolol tartrate 25 mg PO DAILY 07/08/18 09/17/18 Previous Rx's Medication Instructions Recorded hydromorphone 2 mg PO Q4H PRN tab 04/20/18 cefazolin in dextrose (iso-os) 2 gm IV UNSCH ea 08/22/18 hydromorphone (PF) [Dilaudid (PF)] 0.015 mg/kg IM Q4-6H PRN #1 ml 08/22/18 hydroxychloroquine 200 mg PO BID tab 08/22/18 lactated Ringers 100 ml IV .Q24H #1000 ml 08/22/18 Allergies Allergy/AdvReac Type Severity Reaction Status Date / Time codeine Allergy Severe Hives Verified 07/07/18 23:19 diclofenac Allergy Severe HIVES TO Verified 07/07/18 23:19 MECLOMEN,NALFON,TOLECTIN etodolac Allergy Severe HIVES TO Verified 07/07/18 23:19 MECLOMEN,NALFON,TOLECTIN fenoprofen Allergy Severe Hives Verified 07/07/18 23:19 flurbiprofen Allergy Severe HIVES TO Verified 07/07/18 23:19 MECLOMEN,NALFON,TOLECTIN indomethacin Allergy Severe HIVES TO Verified 07/07/18 23:19 MECLOMEN,NALFON,TOLECTIN ketoprofen Allergy Severe HIVES TO Verified 07/07/18 23:19 MECLOMEN,NALFON,TOLECTIN ketorolac Allergy Severe HIVES TO Verified 07/07/18 23:19 MECLOMEN,NALFON,TOLECTIN meclofenamic acid Allergy Severe Hives Verified 07/07/18 23:19 naproxen Allergy Severe HIVES TO Verified 04/18/18 08:33 MECLOMEN,NALFON,TOLECTIN oxaprozin Allergy Severe HIVES TO Verified 04/18/18 08:33 MECLOMEN,NALFON,TOLECTIN sulfamethoxazole Allergy Severe Nausea/Vomi Verified 04/18/18 08:33 ting trimethoprim Allergy Severe Nausea/Vomi Verified 04/18/18 08:33 ting milk AdvReac Intermediate Diarrhea Verified 04/18/18 08:33 Review of Systems ROS: all other systems reviewed are negative [facility] Medical History Medical History Allergic eczema (Acute) Anemia (Acute) Arthritis of both hips (Acute) Cervical spine pain (Acute) Chronic back pain (Acute) Ductal carcinoma in situ (DCIS) of breast (Acute) GERD (gastroesophageal reflux disease) (Acute) Hearing loss (Acute) History of traumatic injury of head (Acute) Hx of deep venous thrombosis (Acute) Hx of hysterectomy (Acute) Hyperlipidemia (Acute) Hypertension (Acute) Insomnia (Acute) Major depression (Acute) Osteopenia (Acute) Palpitations (Acute) TMJ syndrome (Acute) Tinnitus (Acute) Vertigo (Acute) Surgical History Surgical History Hx of abdominal surgery (Acute) Hx of foot surgery (Acute) Hx of left knee surgery (Acute) Hx of neck surgery (Acute) Hx of right knee surgery (Acute) Hx of shoulder surgery (Acute) Social History Social History Substance History: No History of Abuse Second Hand Smoke Exposure: No Smoking Status: Never smoker How Often Do You Have a Drink Containing Alcohol: Monthly or less Recent Travel in [facility] within the Last 8 Weeks: No Recent Out of Country Travel within the Last 8 Weeks: No Immunization History Tetanus Immunization: <5 Years Exam Narrative Exam Narrative: GENERAL: 63-year-old female in no apparent distress SKIN: Right breast incision with redness and drainage noted HEAD: Atraumatic. Normocephalic. EYES: Pupils equal and round. No scleral icterus. No injection or drainage. ENT: No nasal bleeding or discharge. Mucous membranes pink and moist. NECK: Trachea midline. No JVD. CARDIOVASCULAR: Regular rate and rhythm RESPIRATORY: No accessory muscle use. MUSCULOSKELETAL: No obvious deformities. No clubbing. No cyanosis. No edema. NEUROLOGICAL: Awake and alert. Motor grossly within normal limits. Normal speech. PSYCHIATRIC: Appropriate mood and affect; insight and judgment normal. Course Initial Documented Vital Signs Temperature 99.3 F 09/17/18 10:01 Pulse Rate 80 09/17/18 10:01 Respiratory Rate 20 09/17/18 10:01 Blood Pressure 144/88 H 09/17/18 10:01 Pulse Oximetry 98 09/17/18 10:01 Last Documented Vital Signs Temperature 99.3 F 09/17/18 10:01 Pulse Rate 80 09/17/18 10:01 Respiratory Rate 20 09/17/18 10:01 Blood Pressure 144/88 H 09/17/18 10:01 Pulse Oximetry 98 09/17/18 10:01 Medical Decision Making MDM Narrative Medical decision making narrative: We will order CBC and BMP as discussed and admit to Dr. Vaughn's service for operation today Medical Screen Exam Complete: Yes Emergency Medical Condition: Yes Differential Diagnosis Differential Diagnosis: Cellulitis, abscess, postop infection Discharge Plan Discharge Disposition Patient Disposition: ED Admit(ED Internal Use Only) Discharge Order Discharge Orders: ED Use Only Admit Order (Routine); Ordered 09/17/18 Ordered By: Lacy Toro Discharge Details Diagnosis: Breast infection Physicians Team ED Provider: Lacy Toro Primary Care Provider: NON STAFF,PROVIDER Attending Provider: Ryan Vaughn Discharge Interventions Interventions: Vital Signs Last Done: 09/17/18 10:01 Status ED Status: Admitted Observation Patient
[2018-09-17] MEDS ORDERED: Propofol Inj 500 MG/50 ML Vial ONE (11:04)
[2018-09-17 11:17] LABS: Hematocrit 35.2 % (35.0-46.0); Hemoglobin 11.7 gm/dL (11.6-15.3); Mean Corpuscular HGB Conc 33.2 % (32.0-36.0); Mean Corpuscular Hemoglobin 29.5 pg (27.0-34.0); Mean Corpuscular Volume 88.9 fL (80.0-100.0); Mean Platelet Volume 8.2 fL (7.0-11.0); Platelet Count 435 th/mm3 (150-450); Red Blood Count 3.96 mil/mm3 (4.00-5.30); Red Cell Distribution Width 14.4 % (11.6-17.2); White Blood Count 11.1 th/mm3 (4.0-11.0)
[2018-09-17 11:28] LABS: Anion Gap 6 meq/L (5-15); Blood Urea Nitrogen 15 mg/dL (7-18); Calcium 9.2 mg/dL (8.5-10.1); Chloride 100 meq/L (98-107); Glomerular Filtration Rate Greater Than 89 mL/min (>89); Glucose,Random 108 mg/dL (74-106); Sodium 134 meq/L (136-145)
[2018-09-17 11:29] LABS: Potassium 4.8 meq/L (3.5-5.1)
[2018-09-17 11:59] LABS: Eosinophils 1 % (0-4); Monocytes 5 % (0-8)
[2018-09-17 12:00] LABS: Dohle Bodies Present; Lymphocytes 9 % (9-44); Ovalocytes 1+; Platelet Estimate Normal (Normal); Platelet Morphology Normal (Normal)
--- NOTE | 2018-09-17 13:27 | MH ---
cc: Ryan Vaughn MD DATE OF ADMISSION: 09/17/2018 CHIEF COMPLAINT: Right breast infection with leakage from the reconstructed breast. HISTORY OF PRESENT ILLNESS: This is a 63-year-old white female who originally had right breast cancer with bilateral mastectomy surgery done on 10/14/2016 at [place]. She had bilateral tissue expanders placed after the mastectomy. Approximately a month later, her right breast developed a lateral axillary abscess and it was necessary to remove the right breast special education teacher at that time. This surgery was done in [place], not in [place]. The left side continued to be normal with normal healing. The breast cancer was on the right side and she also has had an axillary lymph node dissection on the right side. Approximately 5-6 months later, a new special education teacher was placed on the right side on 04/19/2018 in [place], and after another 4 months on 08/23/2018, both expanders were removed and replaced with silicone gel implants. The right side also needed a small tissue rotation flap from the lateral chest in order to provide additional soft tissue to the lower pole that had contracted over the several months without being expanded. The patient had a partial distal flap tip necrosis the day after surgery and was taken back to the OR. On 08/24/2018, the portion of the flap was removed, and also the silicone implant and AlloMax grafts were replaced with new ones. She did well after the surgery, has been healing well. The drains have been removed. No further necrosis of the flap. The patient had also been on oral antibiotics during this time. The patient recently started having symptoms of headache and she thought she was getting the flu for the last several days. Ultimately, this morning she texted me saying that her right breast is now leaking and it is red. She was asked to come to the [facility] ER, is being admitted and taken to the OR to handle this periprosthetic infection. She was seen in the ER and shows the redness of the right breast extending to the lower half and also portion of the upper flap with what seems to be serous drainage on her clothing. A small granulation spot is noted around the lower incision line and most likely this represents a periprosthetic infection and needs the area to be explored. The patient agrees to the removal of the implant and the AlloMax graft and understands that the reconstruction on the right side will be lost. The left side is doing well overall and in the future she will have to decide to go with most likely an autologous muscle flap alone or in combination with a new implant reconstruction after several months of healing again. PAST MEDICAL HISTORY: Includes type 2 diabetes, obesity, and the history of breast cancer related surgeries. The patient's listed conditions also include a history of previous DVT, which has been treated. No current blood thinners. She has been anemic over the years and her last known hemoglobin was 8.8. She also has been investigated for possible von Willebrandt disease by medical team and the work up is in progress. MEDICATIONS: Includes: 1. Alprazolam. 2. Butabarbital. 3. Cipro. 4. Duloxetine. 5. Hydroxyzine. 6. Ketoconazole. 7. Multivitamins. 8. Plaquenil. 9. Ventolin. ALLERGIES: SHE IS ALLERGIC TO SEVERAL ORAL PAIN MEDICATIONS, ALSO INCLUDES, TOLECTIN, BACTRIM, AND CODEINE DERIVATIVES. PHYSICAL EXAMINATION: VITAL SIGNS: Shows a 63-year-old white female with stable vital signs. She is not febrile presently and not tachycardic. GENERAL: Examination is grossly acceptable. HEAD AND NECK: Shows clear sclerae, equal pupils. NECK: Trachea is in midline. No thyromegaly. Neck movements are normal. CHEST: Good expansion with normal breathing. CARDIAC: Heart sounds and breath sounds are recorded in the ER visit. EXTREMITIES: The upper and lower extremities are grossly intact. There is no lymphedema of the upper extremities. BREAST: The local examination shows bilateral breast reconstruction in place. Right side has the rotational flap. It is soft overall to touch with slight more fullness than the left side. There is small amount of serous leakage noted at the lower pole of the breast on the lower incision line of the flap. The breast is slightly warm to touch compared to the left side. The left side is normally healing with silicone gel implant. PLAN: The plan is to remove the right side breast implant and AlloMax graft and debride the pocket with a drain and loose closure. The rotation flap will be left alone in order to provide additional soft tissue while she is healing. Her laboratory tests are being done. The patient will be taken to the OR as soon as possible. signed, not fully reviewed MD ROMULO [facility]radha , 11:25 AM , 11:40 AM LYN
[2018-09-17] MEDS ORDERED: *Ondansetron Inj 4 MG/2 ML Vial PERIprocedural Use ONLY ONE (13:36)
[2018-09-17] MEDS ORDERED: fentaNYL Citrate Inj 100 MCG/2 ML Ampul ONE (13:42)
--- NOTE | 2018-09-17 13:46 | P.OP ---
Preoperative Diagnosis: Right breast implant periprosthetic infection Postoperative Diagnosis: Right breast implant periprosthetic infection Anesthesia: GETA Surgeon: Ryan Vaughn MD Estimated blood loss (mL): 5 Operation and Findings: Indications: patient is s/p Bilat breast recon - silicone gel implant and Allomax grafts - Right side also has a rotation fasciocutaneous flap from the side of the chest wall. She is approx 4 weeks post op and has developed redness and drainage from the right breast - from the lower incision line of the flap closure. She is also feeling like having a flu and headaches for last several days. She had a similar issue with the Right breast back in Oct 2017 - after her first breast it service delivery manager placement along with the mastectomy and lymph node dissection on the right side. Her left side prophylactic mastectomy, it service delivery manager, and final implant all have done well. Presently the right side silicone implant needs to be removed and also the new Allomax graft, possibly the old Allomax graft from the April 2018 it service delivery manager placement as well. Patient understands that the reconstruction on the right side will be lost at this time a future reconstruction if desired by the patient will need a consideration of using a LD muscle flap with a new implant - -or a TRAM or AUGIE flaps etc. She is willing to proceed for the surgery today. Procedure: Proep site marking done in holding area. Patient brought to the OR , anesthesia started, prep and drape done, time out completed. IV antibiotics on hold until a culture sample is taken from the breast. The lower incision line of the flap opened - Allomax graft over the silicone implant removed, implant removed, approx 10 cc thin yellow seropurulent fluid noted in the pocket, culture sample taken, the old Allomax graft also removed carefully in the areas that it could be easily. It is well integrated in the upper part of the cavity and was left alone. Pocket aspirated clean, scrubbed with betadine scrub sponge and brush for several minutes. rinsed out with saline and gentamicin mix irrigation. Pocket checked for any active bleeding, no bleeders encountered, edges of the Allomax / Pec muscle border cauterized as needed. SHANON drain inserted using previous healed passage. Secured with 4/0 prolene. Breast pocket closed with few 3/0 vicryls and 4/0 Prolene skin sutures. Blood loss minimal, less than 5 cc. No complications, patient stable. IV antibiotics had been started after the implant removal and cultures had been taken
[2018-09-17] MEDS ORDERED: HYDROmorphone PF Inj 0.5 MG/0.5 ML Syringe ONE (13:50)
[2018-09-17] MEDS: HYDROmorphone PF Inj 0.5 MG/0.5 ML Syringe IV.PUSH PRN ×3 (13:52→23:54)
[2018-09-17] MEDS ORDERED: *Promethazine Inj 25 MG/ML Vial PERIprocedural use ONLY ONE (14:01)
[2018-09-17] MEDS ORDERED: *Meperidine Inj 25 MG/ML Vial PERIprocedural Use ONLY ONE (14:01)
[2018-09-17] MEDS ORDERED: *HYDROmorphone PF Inj 1 MG/ML Ampul PERIprocedural Use ONLY ONE ×2 (14:19→14:35)
[2018-09-17] MEDS: Morphine Inj 4 MG/ML Vial IM SCH ×4 (17:52→20:13)
[2018-09-17] MEDS: Sodium Chloride 0.9% 2 ML Flush BID IV.FLUSH SCH (20:06)
[2018-09-17] MEDS: Hydroxychloroquine 200 MG Tablet PO SCH (20:06)
[2018-09-18] MEDS: Vancomycin Inj 1,000 MG in Sodium Chlor 0.9% Inj 250 ML IV.SIG SCH ×2 (00:01→12:20)
[2018-09-18] MEDS: HYDROmorphone PF Inj 0.5 MG/0.5 ML Syringe IV.PUSH PRN ×2 (04:11→10:01)
[2018-09-18] MEDS: Morphine Inj 4 MG/ML Vial IM SCH ×6 (04:14→21:45)
[2018-09-18] MEDS: Hydroxychloroquine 200 MG Tablet PO SCH ×2 (08:34→20:08)
[2018-09-18] MEDS: Metoprolol Tartrate 25 MG Tablet PO SCH (08:34)
[2018-09-18] MEDS: Sodium Chloride 0.9% 2 ML Flush BID IV.FLUSH SCH ×2 (08:35→20:09)
--- NOTE | 2018-09-18 11:45 | P.PNPLA ---
Subjective Remarks: Patient stable, afebrile now. Pain level high, wants increase in dose / time. OK. Dressing checked, breast flaps soft, edema +, no hematoma. SHANON drain serosanguineous. small volume only. No results from microbiology yet. Will consult either [facility] medical team or the ID specialist for help with IV meds. Objective Vital Signs: Vital Signs - 24 hr 09/17/18 13:30 09/17/18 13:45 09/17/18 14:00 Temperature 98.8 F Pulse Rate 79 78 75 Respiratory Rate 12 12 11 L Blood Pressure 134/63 141/65 H 150/68 H Pulse Oximetry 96 98 98 09/17/18 14:15 09/17/18 14:30 09/17/18 14:45 Temperature 98.2 F Pulse Rate 71 76 73 Respiratory Rate 11 L 10 L 10 L Blood Pressure 182/77 H 169/75 H 164/74 H Pulse Oximetry 96 97 97 09/17/18 15:40 09/17/18 16:00 09/17/18 20:00 Temperature 97.9 F 98.3 F Pulse Rate 83 78 Respiratory Rate 14 17 18 Blood Pressure 185/78 H 161/70 H Pulse Oximetry 94 L 97 09/18/18 00:00 09/18/18 04:00 09/18/18 08:00 Temperature 98.2 F 97.9 F 98.3 F Pulse Rate 63 67 63 Respiratory Rate 18 18 16 Blood Pressure 151/90 H 169/76 H 155/67 H Pulse Oximetry 97 100 94 L Intake & Output 09/16/18 09/17/18 09/18/18 09/19/18 06:59 06:59 06:59 06:59 Intake Total 3070 / 3070 Output Total 35 / 35 Balance 3035 / 3035 Weight 85.9 kg Laboratory Results: Laboratory Results - last 24 hr 09/17/18 10:46 WBC Differential Manual diff final Seg Neuts % (Manual) 74 H Band Neuts % (Manual) 11 H Lymphocytes % (Manual) 9 Monocytes % (Manual) 5 Eosinophils % (Manual) 1 Abs Neuts (Manual) 9.4 H Dohle Bodies Present H Platelet Estimate Normal Platelet Morphology Normal Ovalocytes 1+ H Result Diagrams: 09/17/18 10:46 09/17/18 10:46
[2018-09-18] MEDS: HYDROmorphone PF Inj 1 MG/ML Ampul IV.PUSH SCH ×4 (14:18→23:34)
[2018-09-19] MEDS: Vancomycin Inj 1,000 MG in Sodium Chlor 0.9% Inj 250 ML IV.SIG SCH ×2 (01:01→12:43)
[2018-09-19] MEDS: Morphine Inj 4 MG/ML Vial IM SCH ×6 (01:06→20:13)
[2018-09-19] MEDS: HYDROmorphone PF Inj 1 MG/ML Ampul IV.PUSH SCH ×8 (02:24→23:11)
[2018-09-19] MEDS: Metoprolol Tartrate 25 MG Tablet PO SCH (08:59)
[2018-09-19] MEDS: Hydroxychloroquine 200 MG Tablet PO SCH ×2 (09:00→20:12)
[2018-09-19] MEDS: Sodium Chloride 0.9% 2 ML Flush BID IV.FLUSH SCH ×2 (09:00→20:14)
--- NOTE | 2018-09-19 12:59 | P.PNPLA ---
Subjective Remarks: Patient imroving Afebrile Dressing pending today - no new changes to the area Micro - Pasteurella - will start Augmentin now, stop Vanco Also to get [facility] medical consult - routine Patient has cats at home and was advised to clean off any areas licked by the cats immediately - simple soap and water at least. OK to also use rubbing alcohol in addition to the soap and water. Plan to DC tomorrow if no other advise from medical consult as to the antibiotics choice. Objective Vital Signs: Vital Signs - 24 hr 09/18/18 16:00 09/18/18 20:00 09/18/18 21:00 Temperature 98.5 F 97.8 F Pulse Rate 73 71 Respiratory Rate 18 18 18 Blood Pressure 153/74 H 156/61 H Pulse Oximetry 95 94 L 09/18/18 22:00 09/18/18 23:56 09/19/18 08:00 Temperature 97.9 F 98.1 F Pulse Rate 79 74 Respiratory Rate 18 18 18 Blood Pressure 140/91 H 159/87 H Pulse Oximetry 91 L 94 L 09/19/18 12:00 Temperature 98.5 F Pulse Rate 76 Respiratory Rate 17 Blood Pressure 176/76 H Pulse Oximetry 93 L Intake & Output 09/17/18 09/18/18 09/19/18 09/20/18 06:59 06:59 06:59 06:59 Intake Total 3070 / 3070 5130 / 5130 Output Total 35 / 35 10 / 10 Balance 3035 / 3035 5120 / 5120 Weight 85.9 kg 85.9 kg Laboratory Results: Microbiology 09/17/18 12:54 Gram Stain - Final Wound - Breast Wound Culture - Final Pasteurella multocida 09/17/18 12:54 Acid Fast Bacilli Smear - Final Other No acid fast bacilli seen 09/17/18 12:54 Fungal Smear - Final Other Result Diagrams: 09/17/18 10:46 09/17/18 10:46
[2018-09-19] MEDS: Amoxicillin/Clavulanate 875/125 MG Tablet PO SCH ×2 (14:00→20:12)
--- NOTE | 2018-09-19 15:02 | P.CONIM ---
History of Present Illness Reason for Consult: right breast implant infection - s/p removal - Pastuerella infection Primary Care Provider: Dr. Restrepo History of Present Illness: This is a 63-year-old female patient with a past medical history which includes basal as well as squamous cell skin carcinoma, lupus, osteoarthritis, hypertension and right breast cancer. Patient underwent mastectomy with tissue manager supply chain placed October 2017 and breast implant placed August 2018. Patient underwent removal of right breast implant 09/17/2018 intraoperative cultures revealed Pasteurella multicida. We have been consulted for assistance in right breast infection. Patient does report she has multiple animals at home cats as well as dogs. Patient reports she has had drainage from the right breast area. Patient does report postoperative pain in the right breast area better with pain medication. Patient denies fevers chills nausea vomiting diarrhea constipation shortness of breath or chest pain. PMH: basal as well as squamous cell skin carcinoma, lupus, osteoarthritis, hypertension and right breast cancer PSxH: mastectomy with tissue manager supply chain placed October 2017 Right breast implant placed August 2018 Removal of right breast implant 09/17/2018 Bilateral knee replacements Left shoulder replacement PUJA/BSO Cholecystectomy Appendectomy FMH: Mother had breast cancer in her 40s Social history: Patient does have multiple animals at home including cats and dogs Patient denies EtOH use or tobacco use [facility] Medical History Medical History Allergic eczema (Acute) Anemia (Acute) Arthritis of both hips (Acute) Cervical spine pain (Acute) Chronic back pain (Acute) Ductal carcinoma in situ (DCIS) of breast (Acute) GERD (gastroesophageal reflux disease) (Acute) Hearing loss (Acute) History of traumatic injury of head (Acute) Hx of deep venous thrombosis (Acute) Hx of hysterectomy (Acute) Hyperlipidemia (Acute) Hypertension (Acute) Insomnia (Acute) Major depression (Acute) Osteopenia (Acute) Palpitations (Acute) TMJ syndrome (Acute) Tinnitus (Acute) Vertigo (Acute) Surgical History Surgical History Hx of abdominal surgery (Acute) Hx of foot surgery (Acute) Hx of left knee surgery (Acute) Hx of neck surgery (Acute) Hx of right knee surgery (Acute) Hx of shoulder surgery (Acute) Social History Social History Substance History: No History of Abuse Second Hand Smoke Exposure: No Smoking Status: Never smoker How Often Do You Have a Drink Containing Alcohol: Monthly or less Recent Travel in [place] within the Last 8 Weeks: No Recent Out of Country Travel within the Last 8 Weeks: No Immunization History Tetanus Immunization: <5 Years Medications and Allergies Allergies Allergy/AdvReac Type Severity Reaction Status Date / Time codeine Allergy Severe Hives Verified 07/07/18 23:19 diclofenac Allergy Severe HIVES TO Verified 07/07/18 23:19 MECLOMEN,NALFON,TOLECTIN etodolac Allergy Severe HIVES TO Verified 07/07/18 23:19 MECLOMEN,NALFON,TOLECTIN fenoprofen Allergy Severe Hives Verified 07/07/18 23:19 flurbiprofen Allergy Severe HIVES TO Verified 07/07/18 23:19 MECLOMEN,NALFON,TOLECTIN indomethacin Allergy Severe HIVES TO Verified 07/07/18 23:19 MECLOMEN,NALFON,TOLECTIN ketoprofen Allergy Severe HIVES TO Verified 07/07/18 23:19 MECLOMEN,NALFON,TOLECTIN ketorolac Allergy Severe HIVES TO Verified 07/07/18 23:19 MECLOMEN,NALFON,TOLECTIN meclofenamic acid Allergy Severe Hives Verified 07/07/18 23:19 naproxen Allergy Severe HIVES TO Verified 04/18/18 08:33 MECLOMEN,NALFON,TOLECTIN oxaprozin Allergy Severe HIVES TO Verified 04/18/18 08:33 MECLOMEN,NALFON,TOLECTIN sulfamethoxazole Allergy Severe Nausea/Vomi Verified 04/18/18 08:33 ting trimethoprim Allergy Severe Nausea/Vomi Verified 04/18/18 08:33 ting milk AdvReac Intermediate Diarrhea Verified 04/18/18 08:33 Home Medications Medication Instructions Recorded Confirmed Type duloxetine 90 mg PO DAILY 04/17/18 09/17/18 History hydrochlorothiazide 12.5 mg PO DAILY 04/17/18 09/17/18 History ibuprofen 800 mg PO BID PRN 04/17/18 09/17/18 History multivitamin [Daily Multiple] 1 tab PO DAILY 04/17/18 09/17/18 History omeprazole 40 mg PO DAILY 04/17/18 09/17/18 History metoprolol tartrate 25 mg PO DAILY 07/08/18 09/17/18 History Active Medications: Active Medications Amoxicillin/Clavulanate Potassium (Augmentin 875/125 Mg) 1 tab PO Q12HR [facility] Duloxetine HCl (Cymbalta) 90 mg PO DAILY [facility] Last Admin: 09/19/18 08:59 Dose: 90 mg Hydrochlorothiazide (Microzide) 12.5 mg PO DAILY [facility] Last Admin: 09/19/18 08:59 Dose: 12.5 mg Hydromorphone HCl (Dilaudid Pf Inj) 0.5 mg IV.PUSH Q4H PRN PRN Reason: PAIN 1-10 AND/OR FEVER >101F Last Admin: 09/18/18 10:01 Dose: 0.5 mg Hydromorphone HCl (Dilaudid Pf Inj) 0.75 mg IV.PUSH Q3HR [facility] Last Admin: 09/19/18 11:14 Dose: 0.75 mg Hydroxychloroquine Sulfate (Plaquenil) 200 mg PO BID [facility] Last Admin: 09/19/18 09:00 Dose: 200 mg Lactated Ringer's (Lr 1000 Ml Inj) 1,000 mls @ 150 mls/hr IV.SIG .Q6H40M [facility] Last Admin: 09/19/18 09:07 Dose: Not Given Metoprolol Tartrate (Lopressor) 25 mg PO DAILY [facility] Last Admin: 09/19/18 08:59 Dose: 25 mg Morphine Sulfate (Morphine Inj) 2 mg IM Q4HR [facility] Last Admin: 09/19/18 12:41 Dose: 2 mg Multivitamins (Theragran) 1 tab PO DAILY [facility] Last Admin: 09/19/18 08:59 Dose: 1 tab Ondansetron HCl (Zofran Inj) 4 mg IV.PUSH Q6H PRN PRN Reason: NAUSEA Last Admin: 09/19/18 04:59 Dose: 4 mg Sodium Chloride (Ns Flush) 2 ml IV.FLUSH BID [facility] Last Admin: 09/19/18 09:00 Dose: Not Given Sodium Chloride (Ns Flush) 2 ml IV.FLUSH PRN PRN PRN Reason: FLUSH AFTER USING IV ACCESS Physical Exam Vital signs: Last Vital Signs Temp 98.5 F 09/19/18 12:00 Pulse 76 09/19/18 12:00 Resp 17 09/19/18 12:00 BP 176/76 H 09/19/18 12:00 Pulse Ox 93 L 09/19/18 12:00 Narrative: GENERAL: This is a well-nourished, well-developed patient, in no acute distress. SKIN: Right breast surgical incision with scant serosanguineous drainage present on dressing CARDIOVASCULAR: Regular rate and rhythm RESPIRATORY: Clear to auscultation. Breath sounds equal bilaterally. GASTROINTESTINAL: Abdomen soft, non-tender, nondistended. Normal active bowel sounds MUSCULOSKELETAL: Extremities without clubbing, cyanosis, or edema. NEURO: Alert & Oriented x4 to person, place, time, situation. Moves all ext x4 Results Labs CBC & Chem 7: 09/17/18 10:46 09/17/18 10:46 Assessment and Plan Plan This is a 63-year-old female patient with a past medical history which includes basal as well as squamous cell skin carcinoma, lupus, osteoarthritis, hypertension and right breast cancer. Patient underwent mastectomy with tissue manager supply chain placed October 2017 and breast implant placed August 2018. Patient underwent removal of right breast implant 09/17/2018 intraoperative cultures revealed Pasteurella multicida. We have been consulted for assistance in right breast infection. Patient does report she has multiple animals at home cats as well as dogs. Patient reports she has had drainage from the right breast area. Patient does report postoperative pain in the right breast area better with pain medication. Patient denies fevers chills nausea vomiting diarrhea constipation shortness of breath or chest pain. Right breast infection Right breast cancer S/P mastectomy October 2017 Right breast implant 09/17/2018 intraoperative cultures revealed Pasteurella multicida Agree with Augmentin Recommend Augmentin DS p.o. twice daily for 10-14 days Lupus Continue patient's home Plaquenil Hypertension Continue patient's home metoprolol 25 mg daily as well as hydrochlorothiazide 12.5 mg daily Anxiety/depression Continue patient's home fluoxetine DVT prophylaxis with SCDs
[2018-09-19] MEDS: Sodium Chloride 0.9% 2 ML Flush PRN IV.FLUSH (23:12)
[2018-09-20] MEDS: Morphine Inj 4 MG/ML Vial IM SCH ×6 (00:13→20:09)
[2018-09-20] MEDS: HYDROmorphone PF Inj 1 MG/ML Ampul IV.PUSH SCH ×8 (03:01→23:09)
[2018-09-20] MEDS: Sodium Chloride 0.9% 2 ML Flush PRN IV.FLUSH (03:02)
--- NOTE | 2018-09-20 08:33 | P.PNIM ---
Subjective Interval history: No new complaints Pt tolerated the Augmentin 875 Denies any N/V, diarrhea or any GI upset. Afebrile Physical Exam Vital signs: Last Vital Signs Temp 98.0 F 09/20/18 08:00 Pulse 70 09/20/18 08:00 Resp 17 09/20/18 08:00 BP 161/71 H 09/20/18 08:00 Pulse Ox 95 09/20/18 08:00 Narrative: GENERAL: This is a well-nourished, well-developed patient, in no acute distress. SKIN: Right breast surgical incision dressing is c/d/i, SHANON drain in place with scant drainage in SHANON present at exam. CARDIOVASCULAR: Regular rate and rhythm RESPIRATORY: Clear to auscultation. Breath sounds equal bilaterally. GASTROINTESTINAL: Abdomen soft, non-tender, nondistended. Normal active bowel sounds MUSCULOSKELETAL: Extremities without clubbing, cyanosis, or edema. NEURO: Alert & Oriented x4 to person, place, time, situation. Moves all ext x4 Results Labs CBC & Chem 7: 09/17/18 10:46 09/17/18 10:46 Assessment and Plan Plan This is a 63-year-old female patient with a past medical history which includes basal as well as squamous cell skin carcinoma, lupus, osteoarthritis, hypertension and right breast cancer. Patient underwent mastectomy with tissue manager instrumentation placed October 2017 and breast implant placed August 2018. Patient underwent removal of right breast implant 09/17/2018 intraoperative cultures revealed Pasteurella multocida. We have been consulted for assistance in right breast infection. Patient does report she has multiple animals at home cats as well as dogs. Patient reports she has had drainage from the right breast area. Patient does report postoperative pain in the right breast area better with pain medication. Patient denies fevers chills nausea vomiting diarrhea constipation shortness of breath or chest pain. Right breast infection Right breast cancer S/P mastectomy October 2017 Right breast implant 09/17/2018 intraoperative cultures revealed Pasteurella multocida Cont. Augmentin DS p.o. twice daily for 10 days, prescription printed in the chart. Lupus Continue patient's home Plaquenil Hypertension Continue patient's home metoprolol 25 mg daily as well as hydrochlorothiazide 12.5 mg daily Anxiety/depression Continue patient's home fluoxetine DVT prophylaxis with SCDs Progress Note: Quality VTE Deep Vein Thrombosis/Pulmonary Embolism Present on Admission: No
[2018-09-20] MEDS: Hydroxychloroquine 200 MG Tablet PO SCH ×2 (09:30→20:10)
[2018-09-20] MEDS: Metoprolol Tartrate 25 MG Tablet PO SCH (09:30)
[2018-09-20] MEDS: Amoxicillin/Clavulanate 875/125 MG Tablet PO SCH ×2 (09:30→20:09)
[2018-09-20] MEDS: Sodium Chloride 0.9% 2 ML Flush BID IV.FLUSH SCH ×2 (09:31→20:08)
--- NOTE | 2018-09-20 12:55 | P.PNPLA ---
Subjective Remarks: Patient stable, afebrile feeling better. No headache or nausea at this time Right breast pain is still 8 / 10 per patient. Right breast dressing was changed this am - the skin looks more normal color and no black or blisters per patient. Did not open the clean dressing. SHANON mostly serous now, 20-30 cc output. Plan: DC home in am , patient has no ride today, lives in [facility]. Will give Rx for 2 weeks of Augmentin and also Diflucan, Dilaudid. Objective Vital Signs: Vital Signs - 24 hr 09/19/18 16:00 09/19/18 20:00 09/19/18 21:00 Temperature 98.6 F 98.9 F Pulse Rate 70 73 Respiratory Rate 18 19 Blood Pressure 147/85 H 189/84 H 162/65 H Pulse Oximetry 96 94 L 09/19/18 23:54 09/20/18 04:00 09/20/18 08:00 Temperature 98.5 F 98.5 F 98.0 F Pulse Rate 66 73 70 Respiratory Rate 20 19 17 Blood Pressure 156/70 H 145/67 H 161/71 H Pulse Oximetry 93 L 93 L 95 09/20/18 12:00 Temperature 98.3 F Pulse Rate 76 Respiratory Rate 17 Blood Pressure 166/70 H Pulse Oximetry 95 Intake & Output 09/18/18 09/19/18 09/20/18 09/21/18 06:59 06:59 06:59 06:59 Intake Total 3070 / 3070 5130 / 5130 2450 / 2450 1999 Output Total 35 / 35 49 / 49 Balance 3035 / 3035 5120 / 5120 2401 / 2401 1999 Weight 85.9 kg 85.9 kg Laboratory Results: Microbiology 09/17/18 12:54 Gram Stain - Final Wound - Breast Wound Culture - Final Pasteurella multocida Result Diagrams: 09/17/18 10:46 09/17/18 10:46
[2018-09-21] MEDS: Morphine Inj 4 MG/ML Vial IM SCH ×3 (00:32→09:23)
[2018-09-21] MEDS: HYDROmorphone PF Inj 1 MG/ML Ampul IV.PUSH SCH ×3 (02:26→09:25)
[2018-09-21 08:14] VITALS: PULSE 60; RESP 18
[2018-09-21] MEDS: Metoprolol Tartrate 25 MG Tablet PO SCH (09:23)
[2018-09-21] MEDS: Amoxicillin/Clavulanate 875/125 MG Tablet PO SCH (09:23)
[2018-09-21] MEDS: Sodium Chloride 0.9% 2 ML Flush BID IV.FLUSH SCH (09:23)
[2018-09-21] MEDS: Hydroxychloroquine 200 MG Tablet PO SCH (09:23)
[2018-09-21 12:29] VITALS: BP 132/60; TEMP 98.8; O2SAT 95
== END 2018-09-21 13:09 | disposition home or self-care (01) | DRG 908 ==
LOC: NEDA 09:47 → NEPE 09:47 → NEDA 11:11 → N07 15:03
PROVIDERS: ADMIT Plastic Surgery; ATTEND Plastic Surgery
CPT/HCPCS: 80048; 85025; 87015; 87070; 87077; 87102; 87116; 87205; 87206; 99285; J1170; J1580; J2175; J2250; J2270; J2405; J2550; J2704; J3010; J3370; J7050; J7120